=== PATIENT | female | born 1955 | race Caucasian/White ===

== ENCOUNTER 2016-12-11 06:33 | Day surgery (SDC) | payer MEDICAID ==
[~2016-12-11 06:33] MED LIST: Lactated Ringers 1,000 ML IV SCH; Lidocaine 1%/Sod Bicarbonate in NS 8.4% 1 ML Syringe PRN; Sodium Chloride 0.9% 10 ML Syringe FLUSH PRN
[2016-12-11] MEDS ORDERED: Lidocaine 1% 50 ML MDV ONE (07:03)
[2016-12-11] MEDS ORDERED: Bupivacaine 0.25% 30 ML SDV ONE (07:03)
--- NOTE | 2016-12-11 07:09 | PCM.PREANE ---
Preanesthetic Assessment - Anesthesia/Transfusion/Family Hx Anesthesia History: Prior Anesthesia Reaction Type of Anesthesia Reaction: Excessive Nausea/Vomiting Family History of Anesthesia Reaction: No Transfusion History: No Prior Transfusion(s) Additional History: scleroderma - Review of Systems General: No Symptoms Pulmonary: Shortness of Breath, Cough (uses inhalers daily- pt has emphysema ) Cardiovascular: No Symptoms Gastrointestinal: No symptoms (GERD, bleeding gastric ulcer 06/08) Neurological: No Symptoms Other: Reports: Easy Bruising, Depression, Anxiety - Physical Assessment NPO Status Date: 12/10/16 NPO Status Time: 23:50 O2 Sat by Pulse Oximetry: 100 Respiratory Rate: 16 Vital Signs: Last Vital Signs Temp 36.4 C 12/11/16 06:35 Pulse 63 12/11/16 06:35 Resp 16 12/11/16 06:35 BP 118/80 12/11/16 06:35 Pulse Ox 100 12/11/16 06:35 Height: 1.65 m Weight: 51.256 kg ASA Class: 3 Mental Status: Alert & Oriented x3 Airway Class: Mallampati = 2 Dentition: Reports: Dentures (upper and lower ) ROM/Head Extension: Limited/Partial (scleroderma) Lungs: Clear to auscultation, Normal respiratory effort Cardiovascular: Regular Rate, Regular Rhythm - Allergies Allergies/Adverse Reactions: Allergies Allergy/AdvReac Type Severity Reaction Status Date / Time azithromycin Allergy Cannot Verified 12/10/16 15:42 Remember cephalexin [From Keflex] Allergy Cannot Verified 12/10/16 15:42 Remember Influenza Virus Vaccines Allergy Cannot Verified 12/10/16 15:49 Remember codeine AdvReac passes out Verified 12/10/16 15:49 erythromycin base AdvReac passes out Verified 12/10/16 15:49 - Blood Blood Available: No Product(s) Available: None - Anesthesia Plan Pre-Op Medication Ordered: None - Acknowledgements Anesthesia Type Planned: MAC Pt an Appropriate Candidate for the Planned Anesthesia: Yes Alternatives and Risks of Anesthesia Discussed w Pt/Guardian: Yes Pt/Guardian Understands and Agrees with Anesthesia Plan: Yes PreAnesthesia Questionnaire Cardiovascular History: Reports: None Respiratory History: Reports: Bronchitis, recurrent, Other (see below) Other Respiratory History: centrilobular emphysema, chronic bronchitis, aspiration pneumonia, brochoscopy Gastrointestinal History: Reports: Colon polyp, Gastritis, GERD Genitourinary History: Reports: None 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 Other Musculoskeletal History: L lateral epicondylitis, rayauds Neurological History: Reports: None Psychiatric History: Reports: Anxiety, Depression Endocrine/Metabolic History: Reports: None Hematologic History: Reports: None Immunologic History: Reports: None Oncologic (Cancer) History: Reports: Ovarian Dermatologic History: Reports: Other (see below) Other Dermatologic History: scleroderma - Past Surgical History HEENT Surgical History: Reports: Oral surgery GI Surgical History: Reports: Appendectomy, Cholecystectomy, EGD Female Surgical History: Reports: Hysterectomy, Tubal ligation Musculoskeletal Surgical History: Reports: Other (see below) Other Musculoskeletal Surgeries/Procedures:: back surgery, fracture surgery, hand surgery, spine surgery - SUBSTANCE USE Smoking Status *Q: Current Every Day Smoker Recreational Drug Use History: No - HOME MEDS Home Medications: Home Meds Albuterol [Proair HFA] 1 - 2 puff INH Q4H PRN 12/10/16 [History] Dexlansoprazole [Dexilant] 60 mg PO DAILY 12/10/16 [History] Fluticasone/Vilanterol [Breo Ellipta 200-25 MCG Inhalation Kit] 1 puff INH DAILY 12/10/16 [History] Ibuprofen 1 - 3 tab PO Q6H PRN 12/10/16 [History] Nitroglycerin [Nitro-Bid 2%] 0.5 inch TOP Q6H 12/10/16 [History] Ondansetron [Ondansetron] 4 mg PO Q6H PRN 12/10/16 [History] amLODIPine Besylate [Amlodipine Besylate] 10 mg PO DAILY 12/10/16 [History] - CURRENT (IN HOUSE) MEDS Current Meds: Current Medications Lactated Ringer's (Ringers, Lactated) 1,000 mls @ 125 mls/hr IV ASDIRECTED NERY Stop: 12/11/16 23:00 Lidocaine/Sodium Bicarbonate (Buffered Lidocaine 1% In Ns 8.4%) 0.25 ml .XX ONETIME PRN PRN Reason: Prior to IV Start Stop: 12/11/16 18:00 Sodium Chloride (Saline Flush) 10 ml FLUSH ASDIRECTED PRN PRN Reason: Keep Vein Open Stop: 12/11/16 18:00
[2016-12-11] MEDS ORDERED: Midazolam 1 MG/ML 2 ML SDV ONE (07:32)
[2016-12-11] MEDS ORDERED: fentaNYL 100 MCG/2 ML SDV ONE (07:32)
[2016-12-11] MEDS ORDERED: Propofol 200 MG/20 ML SDV ONE (07:32)
[2016-12-11] MEDS ORDERED: Lidocaine 1% 4 ML ONE (07:32)
[2016-12-11] MEDS ORDERED: ceFAZolin 1 GM Vial ONE (07:33)
[2016-12-11] MEDS ORDERED: Ondansetron 4 MG/2 ML SDV ONE (07:58)
--- NOTE | 2016-12-11 08:04 | PCM48HPAN ---
Post Anesthesia Note - EVALUATION WITHIN 48HRS OF ANESTHETIC Vital Signs in Normal Range: Yes Patient Participated in Evaluation: Yes Respiratory Function Stable: Yes Airway Patent: Yes Cardiovascular Function Stable: Yes Hydration Status Stable: Yes Pain Control Satisfactory: Yes Nausea and Vomiting Control Satisfactory: Yes Mental Status Recovered: Yes
[2016-12-11 08:07] VITALS: BP 95/57
--- NOTE | 2016-12-14 18:30 | PCM.OPNOTE ---
- General Post-Op/Procedure Note Date of Surgery/Procedure: 12/11/16 Operative Procedure(s): right carpal tunnel release Pre Op Diagnosis: right median nerve compression neuropathy Post-Op Diagnosis: Same Anesthesia Technique: Local, MAC Primary Surgeon: Weston Silva Anesthesia Provider: Dhaval Schmitt Epic Director: Wendy Ruiz EBL in mLs: 5 Complications: None Condition: Good
--- NOTE | 2016-12-14 19:02 | OR ---
DATE OF OPERATION: 12/11/2016 SURGEON: Weston Silva MD OPERATION PERFORMED: Right carpal tunnel release. PREOPERATIVE DIAGNOSIS: Right median nerve compression neuropathy. POSTOPERATIVE DIAGNOSIS: Right median nerve compression neuropathy. ANESTHESIA: Local MAC. ANESTHESIA PROVIDER: Dhaval Schmitt. FLY WORKER: Wendy Ruiz LPN. ESTIMATED BLOOD LOSS: Less than 5 mL. COMPLICATIONS: None. CONDITION: Stable. DESCRIPTION OF PROCEDURE: The patient was identified in the preop holding area. Proper site was marked and identified by the surgeon. The patient was taken back to the operating theater after adequate anesthesia, the patient's right upper extremity was sterilely prepped and draped in the usual sterile fashion. OR time-out was performed. The patient received 2 g IV Ancef and tolerated the test dose. At this time, 1% lidocaine without epinephrine and 0.25% Marcaine without epinephrine were injected near the palmar cutaneous branch of the median nerve on the right side as well as in the incisional site using Razo cardinal line in the ulnar border of the fourth digit. At this time, an Esmarch was used for exsanguination up to the forearm and was used as a tourniquet. Incision was then made and blunt dissection was taken down to the palmar cutaneous fascia. Palmar cutaneous fascia was then divided using a [place] blade. Transverse carpal ligament was identified. A small rent was made in the transverse carpal ligament. A [place] elevator was then placed into the transverse carpal ligament and [place] blade was used for release distally of the transverse carpal ligament all the way to the palmar fat. At this time, there was found to be adequate release distally. Attention was turned proximally. A tenotomy scissors was used for release of both forearm fascia and transverse carpal ligament proximally making sure to keep the tips ulnar to protect the palmar cutaneous branch of the median nerve. This found to be adequately released both proximally and distally. At this time, adequate saline was irrigated through the wound. A 4-0 nylon simple suture was used for closure of the skin and a sterile soft dressing was applied. The patient tolerated the procedure well and was sent to PACU in stable condition. MMODAL /[id number]
== END 2016-12-11 08:50 | disposition home or self-care (01) ==
LOC: MERGE 06:33 → JD.SDS 06:33
PROVIDERS: ATTEND Orthopaedic Surgery
DX: G56.11 Other lesions of median nerve, right upper limb (principal); K21.9 Gastro-esophageal reflux disease without esophagitis; J44.9 Chronic obstructive pulmonary disease, unspecified; F32.9 Major depressive disorder, single episode, unspecified; F17.200 Nicotine dependence, unspecified, uncomplicated; Z88.1 Allergy status to other antibiotic agents; Z88.8 Allergy status to other drugs, medicaments and biological substances
CPT/HCPCS: 64721; J0690; J2250; J2405; J3010; J7120; 01810; J2704; J3490

== ENCOUNTER 2017-01-15 06:30 | Day surgery (SDC) | payer MEDICAID ==
[2017-01-15] MEDS ORDERED: Lidocaine 1% 50 ML MDV ONE (06:38)
[2017-01-15] MEDS ORDERED: Bupivacaine 0.25% 30 ML SDV ONE (06:38)
[2017-01-15] MEDS ORDERED: fentaNYL 100 MCG/2 ML SDV ONE ×2 (06:46→07:03)
[2017-01-15] MEDS ORDERED: Midazolam 1 MG/ML 2 ML SDV ONE ×2 (06:46→07:04)
[2017-01-15] MEDS ORDERED: ceFAZolin 1 GM Vial ONE (06:46)
[2017-01-15] MEDS ORDERED: Propofol 200 MG/20 ML SDV ONE ×2 (06:50→07:03)
[2017-01-15] MEDS ORDERED: Lidocaine 1% 4 ML ONE (07:04)
--- NOTE | 2017-01-15 07:06 | PCM.PREANE ---
Preanesthetic Assessment - Anesthesia/Transfusion/Family Hx Anesthesia History: Prior Anesthesia Reaction (Nausea intermittently after surgery) Type of Anesthesia Reaction: Other (see below) Family History of Anesthesia Reaction: No Transfusion History: No Prior Transfusion(s) Intubation History: Unknown - Review of Systems General: No Symptoms (Nerves) Pulmonary: Shortness of Breath (COPD, can walk up 2 flights up of stairs but SOB ), Cough (All the time), Other (Emphysema) Cardiovascular: No Symptoms Gastrointestinal: Other (GERD, gastritis) Neurological: Numbness, Tingling (In bilateral hands r/t Raynauds and scleroderma) Other: Reports: Depression, Anxiety - Physical Assessment NPO Status Date: 01/14/17 NPO Status Time: 23:45 Pulse: 68 O2 Sat by Pulse Oximetry: 100 Respiratory Rate: 16 Blood Pressure: 131/71 Temperature: 37.1 C Height: 1.65 m Weight: 51.256 kg ASA Class: 3 Mental Status: Alert & Oriented x3 Airway Class: Mallampati = 3 Dentition: Reports: Dentures (Upper and lower) Thyro-Mental Finger Breadths: 3 Mouth Opening Finger Breadths: 2 ROM/Head Extension: Full Lungs: Decreased breath sounds Cardiovascular: Regular Rate, Regular Rhythm, No Murmurs - Lab Values: Laboratory Last Values MRSA (PCR) Negative 01/13/17 09:23 - Allergies Allergies/Adverse Reactions: Allergies Allergy/AdvReac Type Severity Reaction Status Date / Time Influenza Virus Vaccines Allergy Nausea and Verified 01/15/17 07:11 Vomiting azithromycin AdvReac Dizziness Verified 01/14/17 13:32 cephalexin [From Keflex] AdvReac Nausea and Verified 01/15/17 07:11 Vomiting codeine AdvReac Dizziness Verified 01/14/17 13:32 erythromycin base AdvReac passes out Verified 01/14/17 13:32 - Acknowledgements Anesthesia Type Planned: MAC Pt an Appropriate Candidate for the Planned Anesthesia: Yes Alternatives and Risks of Anesthesia Discussed w Pt/Guardian: Yes Pt/Guardian Understands and Agrees with Anesthesia Plan: Yes PreAnesthesia Questionnaire Cardiovascular History: Reports: None Respiratory History: Reports: Bronchitis, Recurrent, Other (See Below) Other Respiratory History: centrilobular emphysema, chronic bronchitis, aspiration pneumonia, brochoscopy Gastrointestinal History: Reports: Colon Polyp, Gastritis, GERD Genitourinary History: Reports: None SIZE TESTER History: Reports: None Musculoskeletal History: Reports: Back Pain, Chronic, Other (See Below) Other Musculoskeletal History: L lateral epicondylitis, rayauds Neurological History: Reports: None Psychiatric History: Reports: Anxiety, Depression Endocrine/Metabolic History: Reports: None Hematologic History: Reports: None Immunologic History: Reports: None Oncologic (Cancer) History: Reports: Ovarian Dermatologic History: Reports: Scleroderma - Past Surgical History Head Surgeries/Procedures: Reports: None HEENT Surgical History: Reports: Oral Surgery Respiratory Surgical History: Reports: Other (See Below) Other Respiratory Surgeries/Procedures: bronchoscopy GI Surgical History: Reports: Appendectomy, Cholecystectomy, EGD Female Surgical History: Reports: Hysterectomy, Tubal Ligation Musculoskeletal Surgical History: Reports: Other (See Below) Other Musculoskeletal Surgeries/Procedures:: back surgery, fracture surgery, hand surgery, spine surgery - SUBSTANCE USE Smoking Status *Q: Current Every Day Smoker Tobacco Use Within Last Twelve Months: Cigarettes Second Hand Smoke Exposure: Yes Number of Drinks Per Day: 0 Recreational Drug Use History: No - HOME MEDS Home Medications: Home Meds Albuterol [IJD: Ventolin HFA] 2 puff INH Q4HR PRN 06/10/16 [History] Mycophenolate Mofetil 500 mg PO BID 06/10/16 [History] Pantoprazole [ProTONIX] 40 mg PO BIDAC #60 tab.cr 06/10/16 [Rx] Umeclidinium Brm/Vilanterol Tr [Anoro Ellipta 62.5-25 Mcg INH] 1 inh INH DAILY 06/10/16 [History] Albuterol [Proair HFA] 1 - 2 puff INH Q4H PRN 12/10/16 [History] Dexlansoprazole [Dexilant] 60 mg PO DAILY 12/10/16 [History] Fluticasone/Vilanterol [Breo Ellipta 200-25 MCG Inhalation Kit] 1 puff INH DAILY 12/10/16 [History] Ibuprofen 1 - 3 tab PO Q6H PRN 12/10/16 [History] Nitroglycerin [Nitro-Bid 2%] 0.5 inch TOP Q6H 12/10/16 [History] amLODIPine Besylate [Amlodipine Besylate] 10 mg PO DAILY 12/10/16 [History] Tiotropium Br/Olodaterol HCl [Stiolto Respimat Inhal [place]] 1 inh INH DAILY [History] Hydrocodone/Acetaminophen [[place] 5-325] 1 - 2 tab PO Q6H PRN #20 tablet [Rx] Ondansetron [Zofran ODT] 4 mg PO Q6H PRN #20 tab.dis 01/15/17 [Rx] - CURRENT (IN HOUSE) MEDS Current Meds: Current Medications Lactated Ringer's (Ringers, Lactated) 1,000 mls @ 125 mls/hr IV ASDIRECTED NERY Stop: 01/15/17 23:00 Lidocaine/Sodium Bicarbonate (Buffered Lidocaine 1% In Ns 8.4%) 0.25 ml .XX ONETIME PRN PRN Reason: Prior to IV Start Stop: 01/15/17 18:00 Sodium Chloride (Saline Flush) 10 ml FLUSH ASDIRECTED PRN PRN Reason: Keep Vein Open Stop: 01/15/17 18:00 Discontinued Medications Bupivacaine HCl (Marcaine 0.25%) Confirm Administered Dose 30 ml .ROUTE .STK- MED ONE Stop: 01/15/17 06:39 Cefazolin Sodium (Ancef) Confirm Administered Dose 2 gm .ROUTE .STK-MED ONE Stop: 01/15/17 06:47 Fentanyl (Sublimaze) Confirm Administered Dose 100 mcg .ROUTE .STK-MED ONE Stop: 01/15/17 06:47 Fentanyl (Sublimaze) Confirm Administered Dose 100 mcg .ROUTE .STK-MED ONE Stop: 01/15/17 07:04 Lidocaine HCl (Xylocaine-Mpf 1%) Confirm Administered Dose 4 mls @ as directed .ROUTE .STK-MED ONE Stop: 01/15/17 07:05 Lidocaine HCl (Xylocaine 1%) Confirm Administered Dose 50 ml .ROUTE .STK-MED ONE Stop: 01/15/17 06:39 Midazolam HCl (Versed 1 Mg/Ml) Confirm Administered Dose 2 mg .ROUTE .STK-MED ONE Stop: 01/15/17 06:47 Midazolam HCl (Versed 1 Mg/Ml) Confirm Administered Dose 2 mg .ROUTE .STK-MED ONE Stop: 01/15/17 07:05 Propofol (Diprivan 20 Ml) Confirm Administered Dose 200 mg .ROUTE .STK-MED ONE Stop: 01/15/17 06:51 Propofol (Diprivan 20 Ml) Confirm Administered Dose 200 mg .ROUTE .[facility] Stop: 01/15/17 07:04
[2017-01-15 08:32] VITALS: BP 116/72
--- NOTE | 2017-01-21 07:16 | PCM.OPNOTE ---
- General Post-Op/Procedure Note Date of Surgery/Procedure: 01/15/17 Operative Procedure(s): left carpal tunnel release Pre Op Diagnosis: left median nerve compression neuropathy Post-Op Diagnosis: Same Anesthesia Technique: Local, MAC Primary Surgeon: Weston Silva Anesthesia Provider: Gabriella Pollard Geophysical Engineer: Ashley Reveles EBL in mLs: 5 Complications: None Condition: Good
--- NOTE | 2017-01-21 09:35 | OR ---
DATE OF OPERATION: 01/15/2017 SURGEON: Weston Silva MD OPERATION PERFORMED: Left carpal tunnel release. PREOPERATIVE DIAGNOSIS: Left median nerve compression neuropathy. POSTOPERATIVE DIAGNOSIS: Left median nerve compression neuropathy. ANESTHESIA: Local MAC. ANESTHESIA PROVIDER: Moustapha Narayan. MANAGER ENVIRONMENTAL: Ashley Reveles PA-C. ESTIMATED BLOOD LOSS: Less than 5 mL. COMPLICATIONS: None. CONDITION: Stable. DESCRIPTION OF PROCEDURE: The patient was identified in the preoperative holding area, proper site was marked and identified by the surgeon. The patient was taken back to the operating theater, where after adequate anesthesia, the patient's left upper extremity had a nonsterile tourniquet applied and was then sterilely prepped and draped in the usual sterile fashion. OR time-out was performed. The patient did receive 2 g IV Ancef. At this time, Esmarch was used as a tourniquet on the forearm. Marcaine 0.25% without epinephrine and 1% lidocaine without epinephrine were then used for anesthetization of the palmar cutaneous branch of the median nerve as well as the incisional site using R[place] cardinal line in the ulnar border of the fourth digit. At this time, incision was made. Blunt dissection was taken down to the palmar cutaneous fascia. Palmar cutaneous fascia was then incised. A small rent was made in the transverse carpal ligament. A [place] elevator was then placed distally with the use of a [place] blade and tenotomy. The transverse carpal ligament was released all the way distally and was found to have adequate release. Attention was then turned proximally. A tenotomy scissors was used with keeping the tips of ulnar to protect the palmar cutaneous branch of the median nerve, to release the transverse carpal ligament in the forearm fascia. The patient, at this time, had adequate release. Adequate saline was irrigated through the wound. A 4-0 nylon simple suture was used for closure of the skin. The patient tolerated the procedure well and was sent to PACU in stable condition. MMODAL /[id number]
== END 2017-01-15 08:25 | disposition home or self-care (01) ==
LOC: JD.SDS 06:30
PROVIDERS: ATTEND Orthopaedic Surgery
DX: G56.02 Carpal tunnel syndrome, left upper limb (principal); J43.9 Emphysema, unspecified; K21.9 Gastro-esophageal reflux disease without esophagitis; F41.9 Anxiety disorder, unspecified; F17.210 Nicotine dependence, cigarettes, uncomplicated; F32.9 Major depressive disorder, single episode, unspecified; I73.00 Raynaud's syndrome without gangrene; M34.9 Systemic sclerosis, unspecified; Z88.5 Allergy status to narcotic agent; Z88.1 Allergy status to other antibiotic agents; Z90.49 Acquired absence of other specified parts of digestive tract; Z98.51 Tubal ligation status; Z98.890 Other specified postprocedural states; Z90.710 Acquired absence of both cervix and uterus; Z88.8 Allergy status to other drugs, medicaments and biological substances
CPT/HCPCS: 64721; 87641; J0690; J2250; J3010; J7120; 01810; J2704; J3490

== ENCOUNTER 2017-10-02 06:51 | Day surgery (SDC) | payer MEDICAID ==
[~2017-10-02 06:51] MED LIST changes: +Lidocaine 1%/Sod Bicarbonate in NS 8.4% 1 ML Syringe IV PRN; -Lidocaine 1%/Sod Bicarbonate in NS 8.4% 1 ML Syringe PRN
[2017-10-02] MEDS ORDERED: Propofol 200 MG/20 ML SDV ONE (07:28)
[2017-10-02] MEDS ORDERED: Lidocaine 1% 4 ML ONE (07:28)
--- NOTE | 2017-10-02 07:42 | PCM.HP ---
H&P History of Present Illness - General Date of Service: 10/02/17 Admit Problem/Dx: 62 year old female here today for colon cancer screening. Colonoscopy was attempted last year and adenomatous polyp was removed and due to poor prep it was recommended to return in 1 year. Her prep was intensified this year and she feels she has had a good result. She notes no family history of colon cancer. She has pulmonology managed ILD and emphysema. She denies any blood in stool. Source of Information: Patient History Limitations: Reports: No Limitations - Related Data Allergies/Adverse Reactions: Allergies Allergy/AdvReac Type Severity Reaction Status Date / Time duloxetine [From Cymbalta] Allergy Confusion Verified 10/02/17 07:43 Influenza Virus Vaccines Allergy Nausea and Verified 10/02/17 07:43 Vomiting azithromycin AdvReac Dizziness Verified 10/02/17 07:43 cephalexin [From Keflex] AdvReac Nausea and Verified 10/02/17 07:43 Vomiting codeine AdvReac Dizziness Verified 10/02/17 07:43 erythromycin base AdvReac passes out Verified 10/02/17 07:43 Home Medications: Home Meds Albuterol [Proair HFA] 1 - 2 puff INH Q4H PRN 12/10/16 [History] Dexlansoprazole [Dexilant] 60 mg PO DAILY 12/10/16 [History] amLODIPine Besylate [Amlodipine Besylate] 10 mg PO DAILY 12/10/16 [History] Tiotropium Br/Olodaterol HCl [Stiolto Respimat Inhal [place]] 2 inh INH DAILY [History] Albuterol/Ipratropium [Combivent Respimat] 1 puff INH Q4H PRN 10/01/17 [History] Beclomethasone Dipropionate [Qnasl] 2 puff INH BID 10/01/17 [History] Hydroxychloroquine Sulfate [Plaquenil] 400 mg PO DAILY 10/01/17 [History] Past Medical History HEENT History: Reports: Other (See Below) Other HEENT History: has dentures Cardiovascular History: Reports: None Respiratory History: Reports: Bronchitis, Recurrent, Other (See Below) Other Respiratory History: centrilobular emphysema, chronic bronchitis, aspiration pneumonia, brochoscopy, interstitial lung disease Gastrointestinal History: Reports: Colon Polyp, Gastritis, GERD, Other (See Below) Other Gastrointestinal History: gastritis, rectal polyp Genitourinary History: Reports: None 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 Musculoskeletal History: Reports: Back Pain, Chronic, Other (See Below) Other Musculoskeletal History: L lateral epicondylitis, rayauds Neurological History: Reports: None Psychiatric History: Reports: Anxiety, Depression Endocrine/Metabolic History: Reports: None Hematologic History: Reports: None Immunologic History: Reports: None Oncologic (Cancer) History: Reports: Ovarian Dermatologic History: Reports: Scleroderma - Past Surgical History Head Surgeries/Procedures: Reports: None HEENT Surgical History: Reports: Oral Surgery Cardiovascular Surgical History: Reports: None Respiratory Surgical History: Reports: Other (See Below) Other Respiratory Surgeries/Procedures: bronchoscopy GI Surgical History: Reports: Appendectomy, Cholecystectomy, EGD Female Surgical History: Reports: Hysterectomy, Oophorectomy, Tubal Ligation Male Surgical History: Reports: None Endocrine Surgical History: Reports: None Neurological Surgical History: Reports: Other (See Below) Other Neurological Surgeries/Procedures: spine surgery Musculoskeletal Surgical History: Reports: Other (See Below) Other Musculoskeletal Surgeries/Procedures:: back surgery, fracture surgery, hand surgery, spine surgery Oncologic Surgical History: Reports: None Dermatological Surgical History: Reports: None Social & Family History - Tobacco Use Smoking Status *Q: Current Every Day Smoker Years of Tobacco use: 45 Packs/Tins Daily: 0.5 Second Hand Smoke Exposure: Yes - Caffeine Use Caffeine Use: Reports: None - Alcohol Use Number of Drinks Per Day: 0 - Recreational Drug Use Recreational Drug Use: No Drug Use in Last 12 Months: No H&P Review of Systems - Review of Systems: Review Of Systems: See Below General: Reports: No Symptoms Pulmonary: Reports: Shortness of Breath, Cough Cardiovascular: Reports: No Symptoms Gastrointestinal: Reports: No Symptoms Skin: Reports: No Symptoms Exam - Exam Exam: See Below - Exam General: Alert, Oriented Lungs: Clear to Auscultation, Normal Respiratory Effort, Decreased Breath Sounds Cardiovascular: Regular Rate, Regular Rhythm GI/Abdominal Exam: Normal Bowel Sounds, Soft, Non-Tender *Q Meaningful Use (ADM) - VTE *Q VTE Criteria *Q: - Stroke *Q Stroke Criteria *Q: - AMI *Q AMI Criteria *Q: - Problem List (1) History of colonoscopy with polypectomy SNOMED Code(s): 100387970 ICD Code: Z98.890 - OTHER SPECIFIED POSTPROCEDURAL STATES; Z86.010 - PERSONAL HISTORY OF COLONIC POLYPS Status: Acute Current Visit: Yes (2) History of adenomatous polyp of colon SNOMED Code(s): 347018617 ICD Code: Z86.010 - PERSONAL HISTORY OF COLONIC POLYPS Status: Acute Current Visit: Yes Problem List Initiated/Reviewed/Updated: Yes Orders Last 24hrs: Active Orders 24 hr Category Date Time Status Peripheral IV Care [RC] . DIRECTED Care 10/02/17 00:01 Active Verify Patient Consent Obtain [RC] ASDIRECTED Care 10/02/17 00:01 Active Lactated Ringers [Ringers, Lactated] 1,000 ml Med 10/02/17 00:01 Active IV ASDIRECTED Lidocaine 1%/Sod Bicarbonate [Buffered Lidocaine 1% in Med 10/02/17 00:01 Active NS 8.4%] 0.25 ml IV ONETIME PRN Sodium Chloride 0.9% [Saline Flush] Med 10/02/17 00:01 Active 10 ml FLUSH ASDIRECTED PRN Medication Administration Instruction [OM.PC] Routine Oth 10/02/17 00:01 Ordered Peripheral IV Insertion Adult [OM.PC] Routine Oth 10/02/17 00:01 Ordered Medication Orders Lactated Ringer's (Ringers, Lactated) 1,000 mls @ 125 mls/hr IV ASDIRECTED NERY Lidocaine/Sodium Bicarbonate (Buffered Lidocaine 1% In Ns 8.4%) 0.25 ml IV ONETIME PRN PRN Reason: Prior to IV Start Sodium Chloride (Saline Flush) 10 ml FLUSH ASDIRECTED PRN PRN Reason: Keep Vein Open Assessment/Plan Comment:: Proceed with colonoscopy with MAC. benefits/risks discussed.
[2017-10-02] MEDS ORDERED: Ondansetron 4 MG/2 ML SDV ONE (08:01)
--- NOTE | 2017-10-02 08:27 | PCM.OPNOTE ---
- General Post-Op/Procedure Note Date of Surgery/Procedure: 10/02/17 Operative Procedure(s): Colonoscopy with cold forceps biopsy Findings: 4 mm sigmoid polyp Pre Op Diagnosis: Personal history colon polyps, history of incomplete colonoscopy prep Post-Op Diagnosis: Colon polyp Primary Surgeon: Glynn Herrmann EBL in mLs: 5 Complications: None Condition: Good Free Text/Narrative:: After patient gave verbal and written consent she was placed on bp and pulse ox monitoring. She was given iv sedation which she tolerated well. The olympus colonoscope was inserted per rectum and advanced to the cecum without difficulty. The ileocecal valve and appendiceal orfice were imaged documenting cecal intubation. The scope was slowly withdrawn. The prep was excellent. The views were excellent. A 4 mm sigmoid polyp was noted and removed by cold forceps biopsy. It was completely removed. There was hemostasis. The scope was then retroflexed in the rectum and then removed.
[2017-10-02 08:56] VITALS: BP 139/78
--- NOTE | 2017-10-02 12:54 | PCM.PREANE ---
Preanesthetic Assessment - Procedure Proposed Procedure: colonoscopy - Anesthesia/Transfusion/Family Hx Anesthesia History: Prior Anesthesia Reaction (Nausea intermittently after surgery) Family History of Anesthesia Reaction: No Transfusion History: No Prior Transfusion(s) Intubation History: Unknown - Review of Systems General: No Symptoms Pulmonary: No Symptoms Cardiovascular: No Symptoms Gastrointestinal: No Symptoms Neurological: No Symptoms Other: Reports: None - Physical Assessment NPO Status Date: 10/01/17 NPO Status Time: 20:00 O2 Sat by Pulse Oximetry: 99 Respiratory Rate: 16 Vital Signs: Last Vital Signs Temp 36.3 C 10/02/17 08:29 Pulse 47 L 10/02/17 08:55 Resp 16 10/02/17 08:55 BP 139/78 10/02/17 08:55 Pulse Ox 99 10/02/17 08:55 Height: 1.65 m Weight: 52.163 kg ASA Class: 2 Mental Status: Alert & Oriented x3 Airway Class: Mallampati = 1 Thyro-Mental Finger Breadths: 3 Mouth Opening Finger Breadths: 5 ROM/Head Extension: Full Lungs: Normal Respiratory Effort, Decreased Breath Sounds Cardiovascular: Regular Rate, Regular Rhythm - Allergies Allergies/Adverse Reactions: Allergies Allergy/AdvReac Type Severity Reaction Status Date / Time duloxetine [From Cymbalta] Allergy Confusion Verified 10/02/17 07:43 Influenza Virus Vaccines Allergy Nausea and Verified 10/02/17 07:43 Vomiting azithromycin AdvReac Dizziness Verified 10/02/17 07:43 cephalexin [From Keflex] AdvReac Nausea and Verified 10/02/17 07:43 Vomiting codeine AdvReac Dizziness Verified 10/02/17 07:43 erythromycin base AdvReac passes out Verified 10/02/17 07:43 - Blood Blood Available: No - Acknowledgements Anesthesia Type Planned: MAC Pt an Appropriate Candidate for the Planned Anesthesia: Yes Alternatives and Risks of Anesthesia Discussed w Pt/Guardian: Yes Pt/Guardian Understands and Agrees with Anesthesia Plan: Yes Additional Comments: preop done before case charted post op due to computer access not working PreAnesthesia Questionnaire HEENT History: Reports: Other (See Below) Other HEENT History: has dentures Cardiovascular History: Reports: None Respiratory History: Reports: Bronchitis, Recurrent, Other (See Below) Other Respiratory History: centrilobular emphysema, chronic bronchitis, aspiration pneumonia, brochoscopy, interstitial lung disease Gastrointestinal History: Reports: Colon Polyp, Gastritis, GERD, Other (See Below) Other Gastrointestinal History: gastritis, rectal polyp Genitourinary History: Reports: None 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: Reports: 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 Musculoskeletal History: Reports: Back Pain, Chronic, Other (See Below) Other Musculoskeletal History: L lateral epicondylitis, rayauds Neurological History: Reports: None Psychiatric History: Reports: Anxiety, Depression Endocrine/Metabolic History: Reports: None Hematologic History: Reports: None Immunologic History: Reports: None Oncologic (Cancer) History: Reports: Ovarian Dermatologic History: Reports: Scleroderma - Past Surgical History Head Surgeries/Procedures: Reports: None HEENT Surgical History: Reports: Oral Surgery Cardiovascular Surgical History: Reports: None Respiratory Surgical History: Reports: Other (See Below) Other Respiratory Surgeries/Procedures: bronchoscopy GI Surgical History: Reports: Appendectomy, Cholecystectomy, EGD Female Surgical History: Reports: Hysterectomy, Oophorectomy, Tubal Ligation Male Surgical History: Reports: None Endocrine Surgical History: Reports: None Neurological Surgical History: Reports: Other (See Below) Other Neurological Surgeries/Procedures: spine surgery Musculoskeletal Surgical History: Reports: Other (See Below) Other Musculoskeletal Surgeries/Procedures:: back surgery, fracture surgery, hand surgery, spine surgery Oncologic Surgical History: Reports: None Dermatological Surgical History: Reports: None - SUBSTANCE USE Smoking Status *Q: Current Every Day Smoker Tobacco Use Within Last Twelve Months: Cigarettes Second Hand Smoke Exposure: Yes Number of Drinks Per Day: 0 Recreational Drug Use History: No - HOME MEDS Home Medications: Home Meds Albuterol [Proair HFA] 1 - 2 puff INH Q4H PRN 12/10/16 [History] Dexlansoprazole [Dexilant] 60 mg PO DAILY 12/10/16 [History] amLODIPine Besylate [Amlodipine Besylate] 10 mg PO DAILY 12/10/16 [History] Tiotropium Br/Olodaterol HCl [Stiolto Respimat Inhal [place]] 2 inh INH DAILY [History] Albuterol/Ipratropium [Combivent Respimat] 1 puff INH Q4H PRN 10/01/17 [History] Beclomethasone Dipropionate [Qnasl] 2 puff INH BID 10/01/17 [History] Hydroxychloroquine Sulfate [Plaquenil] 400 mg PO DAILY 10/01/17 [History] - CURRENT (IN HOUSE) MEDS Current Meds: Current Medications Discontinued Medications Lactated Ringer's (Ringers, Lactated) 1,000 mls @ 125 mls/hr IV ASDIRECTED NERY Last Admin: 10/02/17 07:15 Dose: 125 mls/hr Lidocaine HCl (Xylocaine-Mpf 1%) Confirm Administered Dose 4 mls @ as directed .ROUTE .STK-MED ONE Stop: 10/02/17 07:29 Lidocaine/Sodium Bicarbonate (Buffered Lidocaine 1% In Ns 8.4%) 0.25 ml IV ONETIME PRN PRN Reason: Prior to IV Start Ondansetron HCl (Zofran) Confirm Administered Dose 4 mg .ROUTE .STK-MED ONE Stop: 10/02/17 08:02 Propofol (Diprivan 20 Ml) Confirm Administered Dose 200 mg .ROUTE .STK-MED ONE Stop: 10/02/17 07:29 Sodium Chloride (Saline Flush) 10 ml FLUSH ASDIRECTED PRN PRN Reason: Keep Vein Open
== END 2017-10-02 09:21 | disposition home or self-care (01) ==
LOC: JD.SDS 06:51
PROVIDERS: ATTEND Family Medicine
DX: Z09 Encounter for follow-up examination after completed treatment for conditions other than malignant neoplasm (principal); K63.5 Polyp of colon; K21.9 Gastro-esophageal reflux disease without esophagitis; F41.9 Anxiety disorder, unspecified; F32.9 Major depressive disorder, single episode, unspecified; F17.210 Nicotine dependence, cigarettes, uncomplicated; Z98.890 Other specified postprocedural states; M34.9 Systemic sclerosis, unspecified; I73.00 Raynaud's syndrome without gangrene; Z86.010 Personal history of colon polyps; Z88.8 Allergy status to other drugs, medicaments and biological substances; Z88.7 Allergy status to serum and vaccine; Z88.5 Allergy status to narcotic agent; Z79.899 Other long term (current) drug therapy; Z90.49 Acquired absence of other specified parts of digestive tract; Z90.710 Acquired absence of both cervix and uterus; Z90.722 Acquired absence of ovaries, bilateral; Z98.51 Tubal ligation status; Z85.43 Personal history of malignant neoplasm of ovary
CPT/HCPCS: 45380; J2405; J7120; 00812; J2001; J2704

== ENCOUNTER 2019-08-19 10:04 | Emergency (ER) | payer MEDICARE, MEDICAID ==
[2019-08-19 10:12] VITALS: BP 127/78; PULSE 92
[2019-08-19] MEDS ORDERED: Acetaminophen 325 MG Tab PO ONE ×2 (10:24→10:29)
[2019-08-19] MEDS ORDERED: Ondansetron 4 MG/2 ML SDV IVPUSH ONE (10:24)
[2019-08-19] MEDS ORDERED: Ketorolac 30 MG/ML SDV IVPUSH ONE (10:24)
[2019-08-19] MEDS ORDERED: Sodium Chloride 0.9% 1,000 ML IV SCH (10:30)
--- NOTE | 2019-08-19 10:31 | EDM.PDOC ---
ED HPI GENERAL MEDICAL PROBLEM - General Chief Complaint: General Stated Complaint: [facility] Time Seen by Provider: 08/19/19 10:06 Source of Information: Reports: Patient History Limitations: Reports: No Limitations - History of Present Illness INITIAL COMMENTS - FREE TEXT/NARRATIVE: Patient is a 64-year-old female who presents via [facility] with complaints of excruciating head pain, cough, congestion, and ear pain. Patient denies any history of migraines or generalized headaches. States she feels like "her head is going to explode "and rates the pain 10 out of 10. She does have some nausea with this as well. She states the headache began last night, but the cough and congestion started 2 days ago. Her cough is nonproductive. She does also complain of chills. She did not get a flu vaccine this year. Denies vomiting, diarrhea, fevers, or shortness of breath. Frontal Headache Pain Score (Numeric/FACES): 10 - Related Data Allergies Allergy/AdvReac Type Severity Reaction Status Date / Time duloxetine [From Cymbalta] Allergy Confusion Verified 08/19/19 10:15 Influenza Virus Vaccines Allergy Nausea and Verified 08/19/19 10:15 Vomiting azithromycin AdvReac Dizziness Verified 08/19/19 10:15 cephalexin [From Keflex] AdvReac Nausea and Verified 08/19/19 10:15 Vomiting codeine AdvReac Dizziness Verified 08/19/19 10:15 erythromycin base AdvReac passes out Verified 08/19/19 10:15 Home Meds: Home Meds Albuterol [Proair HFA] 1 - 2 puff INH Q4H PRN 12/10/16 [History] Dexlansoprazole [Dexilant] 60 mg PO DAILY 12/10/16 [History] amLODIPine Besylate [Amlodipine Besylate] 10 mg PO DAILY 12/10/16 [History] Tiotropium Br/Olodaterol HCl [Stiolto Respimat Inhal [place]] 2 inh INH DAILY [History] Albuterol/Ipratropium [Combivent Respimat] 1 puff INH Q4H PRN 10/01/17 [History] Beclomethasone Dipropionate [Qnasl] 2 puff INH BID 10/01/17 [History] Hydroxychloroquine Sulfate [Plaquenil] 400 mg PO DAILY 10/01/17 [History] Past Medical History HEENT History: Reports: Other (See Below) Other HEENT History: has dentures Cardiovascular History: Reports: None Respiratory History: Reports: Bronchitis, Recurrent, Other (See Below) Other Respiratory History: centrilobular emphysema, chronic bronchitis, aspiration pneumonia, brochoscopy, interstitial lung disease Gastrointestinal History: Reports: Colon Polyp, Gastritis, GERD, Other (See Below) Other Gastrointestinal History: gastritis, rectal polyp Genitourinary History: Reports: None EAP COUNSELOR History: Reports: None Musculoskeletal History: Reports: Back Pain, Chronic, Other (See Below) Other Musculoskeletal History: L lateral epicondylitis, rayauds Neurological History: Reports: None Psychiatric History: Reports: Anxiety, Depression Endocrine/Metabolic History: Reports: None Hematologic History: Reports: None Immunologic History: Reports: None Oncologic (Cancer) History: Reports: Ovarian Dermatologic History: Reports: Scleroderma - Past Surgical History Head Surgeries/Procedures: Reports: None HEENT Surgical History: Reports: Oral Surgery Respiratory Surgical History: Reports: Other (See Below) Other Respiratory Surgeries/Procedures: bronchoscopy GI Surgical History: Reports: Appendectomy, Cholecystectomy, EGD Female Surgical History: Reports: Hysterectomy, Oophorectomy, Tubal Ligation Neurological Surgical History: Reports: Other (See Below) Other Neurological Surgeries/Procedures: spine surgery Musculoskeletal Surgical History: Reports: Other (See Below) Other Musculoskeletal Surgeries/Procedures:: back surgery, fracture surgery, hand surgery, spine surgery Oncologic Surgical History: Reports: None Dermatological Surgical History: Reports: None Social & Family History - Tobacco Use Smoking Status *Q: Current Every Day Smoker Years of Tobacco use: 40 Packs/Tins Daily: 0.5 - Caffeine Use Caffeine Use: Reports: Coffee, Soda - Recreational Drug Use Recreational Drug Use: No ED ROS GENERAL - Review of Systems Review Of Systems: See Below Constitutional: Reports: Chills, Diaphoresis. Denies: Fever HEENT: Reports: Ear Pain, Rhinitis, Sinus Problem Respiratory: Reports: Cough. Denies: Shortness of Breath, Wheezing Cardiovascular: Reports: No Symptoms. Denies: Chest Pain, Palpitations Endocrine: Reports: No Symptoms GI/Abdominal: Reports: Nausea. Denies: Abdominal Pain, Diarrhea, Vomiting : Reports: No Symptoms Musculoskeletal: Reports: No Symptoms Skin: Reports: No Symptoms Neurological: Reports: Headache ("worst headache she has ever had") Psychiatric: Reports: No Symptoms Hematologic/Lymphatic: Reports: No Symptoms Immunologic: Reports: No Symptoms ED EXAM, GENERAL - Physical Exam Exam: See Below Exam Limited By: No Limitations General Appearance: Alert, WD/WN, Moderate Distress Eye Exam: Bilateral Eye: PERRL Ears: Normal External Exam, Normal Canal, Hearing Grossly Normal, Normal TMs Nose: Clear Rhinorrhea, Other (congestion) Throat/Mouth: Normal Inspection, Normal Oropharynx, Normal Voice, No Airway Compromise Head: Atraumatic, Normocephalic, Facial Tenderness, Sinus Tenderness. No: Facial Swelling Neck: Normal Inspection, Supple, Non-Tender, Full Range of Motion Respiratory/Chest: No Respiratory Distress, Lungs Clear, Normal Breath Sounds, No Accessory Muscle Use, Chest Non-Tender Cardiovascular: Normal Peripheral Pulses, Regular Rate, Rhythm, No Edema, No Murmur GI/Abdominal: Normal Bowel Sounds, Soft, Non-Tender, No Organomegaly, No Distention Neurological: Alert, Oriented, Normal Cognition, No Motor/Sensory Deficits Psychiatric: Normal Affect, Normal Mood Skin Exam: Warm, Dry, Intact, Normal Color, No Rash Lymphatic: No Adenopathy Course - Vital Signs Last Recorded V/S: Last Vital Signs Temp 97.0 F 08/19/19 10:06 Pulse 92 08/19/19 10:06 Resp 16 08/19/19 10:06 BP 127/78 08/19/19 10:06 Pulse Ox 96 08/19/19 10:06 - Orders/Labs/Meds Orders: Active Orders 24 hr Category Date Time Status Chest 2V [CR] Stat Exams 08/19/19 10:49 Taken Sodium Chloride 0.9% [Normal Saline] 1,000 ml Med 08/19/19 10:30 Active IV ASDIRECTED Medication Orders Sodium Chloride (Normal Saline) 1,000 mls @ 999 mls/hr IV ASDIRECTED NERY Last Infusion: 08/19/19 11:14 Dose: 150 mls/hr Admin: 08/19/19 10:37 Dose: 999 mls/hr Labs: Laboratory Tests 08/19/19 08/19/19 Range/Units 10:33 10:33 WBC 4.91 (3.98-10.04) K/mm3 RBC 4.62 (3.98-5.22) M/mm3 Hgb 13.6 (11.2-15.7) gm/dl Hct 41.2 (34.1-44.9) % MCV 89.2 D (79.4-94.8) fl MCH 29.4 (25.6-32.2) pg MCHC 33.0 (32.2-35.5) g/dl RDW Std Deviation 46.1 (36.4-46.3) fL Plt Count 156 L D (182-369) K/mm3 MPV 9.5 (9.4-12.3) fl Neut % (Auto) 78.9 H (34.0-71.1) % Lymph % (Auto) 7.1 L (19.3-51.7) % [place] % (Auto) 13.4 H (4.7-12.5) % Eos % (Auto) 0 L (0.7-5.8) Baso % (Auto) 0.2 (0.1-1.2) % Neut # (Auto) 3.87 (1.56-6.13) K/mm3 Lymph # (Auto) 0.35 L (1.18-3.74) K/mm3 [place] # (Auto) 0.66 H (0.24-0.36) K/mm3 Eos # (Auto) 0.00 L (0.04-0.36) K/mm3 Baso # (Auto) 0.01 (0.01-0.08) K/mm3 Sodium 139 (136-145) mEq/L Potassium 3.3 L (3.5-5.1) mEq/L Chloride 105 (98-107) mEq/L Carbon Dioxide 23 (21-32) mEq/L Anion Gap 14.3 (5-15) BUN 13 (7-18) mg/dL Creatinine 0.7 (0.55-1.02) mg/dL Est Cr Clr Drug Dosing 64.79 mL/min Estimated GFR (MDRD) > 60 (>60) mL/min BUN/Creatinine Ratio 18.6 H (14-18) Glucose 95 (80-115) mg/dL Calcium 7.7 L D (8.5-10.1) mg/dL Total Bilirubin 0.7 (0.2-1.0) mg/dL AST 16 (15-37) U/L ALT 15 (14-59) U/L Alkaline Phosphatase 90 (46-116) U/L Total Protein 6.3 L (6.4-8.2) g/dl Albumin 3.0 L (3.4-5.0) g/dl Globulin 3.3 gm/dL Albumin/Globulin Ratio 0.9 L (1-2) Meds: Medications Generic Name Dose Route Start Last Admin Trade Name Freq PRN Reason Stop Dose Admin Sodium Chloride 1,000 mls @ 999 mls/hr 08/19/19 10:30 08/19/19 11:14 Normal Saline IV 150 mls/hr ASDIRECTED NERY Infusion Discontinued Medications Generic Name Dose Route Start Last Admin Trade Name Freq PRN Reason Stop Dose Admin Acetaminophen 650 mg 08/19/19 10:24 08/19/19 10:32 Tylenol PO 08/19/19 10:25 Not Given NOW ONE Acetaminophen 975 mg 08/19/19 10:29 08/19/19 10:38 Tylenol PO 08/19/19 10:30 975 mg NOW ONE Administration Hydromorphone HCl 0.5 mg 08/19/19 11:26 08/19/19 11:35 Dilaudid IVPUSH 08/19/19 11:27 0.5 mg ONETIME ONE Administration Ketorolac Tromethamine 30 mg 08/19/19 10:24 08/19/19 10:38 Toradol IVPUSH 08/19/19 10:25 30 mg ONETIME ONE Administration Ondansetron HCl 4 mg 08/19/19 10:24 08/19/19 10:38 Zofran IVPUSH 08/19/19 10:25 4 mg ONETIME ONE Administration - Re-Assessments/Exams Free Text/Narrative Re-Assessment/Exam: I feel it is likely the patient's symptoms are related to a viral respiratory infection with sinusitis, however with the extent of her head pain and her lack of history of headaches I will complete a head CT. I have ordered a 500 ml bolus of saline followed by 150 ml/hr maintenance fluids, acetaminophen, Toradol , and Zofran. I will check a CBC, CMP as well as an influenza screen. 08/19/19 11:28 Patient's laboratory results are grossly unremarkable. Influenza swab is negative. Still awaiting formal read on head CT. Patient continues to rate her head pain at 8 out of 10. I've ordered Dilaudid 0.5 mg IV 08/19/19 12:41 Patient did have relief from her headache with the Dilaudid administration. Head CT was negative for any acute findings. Discussed with patient that she is likely suffering from a viral upper respiratory infection. I will discharge her home with symptomatic treatment. Discharge instructions as noted. Departure - Departure Time of Disposition: 12:41 Disposition: Home, Self-Care 01 Condition: Fair Clinical Impression: Viral upper respiratory tract infection with cough - Discharge Information *PRESCRIPTION DRUG MONITORING PROGRAM REVIEWED*: No *COPY OF PRESCRIPTION DRUG MONITORING REPORT IN PATIENT PAGE: No Instructions: Viral Respiratory Infection Referrals: PCP,Unknown [Ordering Only Provider] - Forms: ED Department Discharge Additional Instructions: You were seen in the emergency department for headache, sinus pressure, cough, and congestion that started 2 days ago. Your lab results were normal as was your head CT and chest x-ray. It is like that sure suffering from a viral upper respiratory infection. Treatment for this is symptomatic. He may use Tylenol or ibuprofen as needed for pain and headaches. [id number] Flonase would be beneficial for your sinus pressure and congestion. We recommend that she rest and have adequate fluid intake. Symptoms generally resolve within 7-10 days. If you experience any new or worsening symptoms, please not hesitate to return to the emergency department. Sepsis Event Note - Evaluation Sepsis Screening Result: No Definite Risk - Focused Exam Vital Signs: Vital Signs Temp Pulse Resp BP Pulse Ox 08/19/19 10:06 97.0 F 92 16 127/78 96 Date Exam was Performed: 08/19/19 Time Exam was Performed: 12:50 - My Orders Last 24 Hours: My Active Orders 08/19/19 10:30 Sodium Chloride 0.9% [Normal Saline] 1,000 ml IV ASDIRECTED 08/19/19 10:49 Chest 2V [CR] Stat - Assessment/Plan Last 24 Hours: My Active Orders 08/19/19 10:30 Sodium Chloride 0.9% [Normal Saline] 1,000 ml IV ASDIRECTED 08/19/19 10:49 Chest 2V [CR] Stat
[2019-08-19] MEDS ORDERED: HYDROmorphone 0.5 MG/0.5 ML Syringe IVPUSH ONE (11:26)
--- NOTE | 2019-08-19 12:32 | CT ---
Head CT Technique: Multiple axial sections through the brain were obtained. Intravenous contrast was not utilized. Comparison: No prior intracranial imaging is available. Findings: Ventricles along with basal cisterns and sulci over the convexities appear within normal limits for the patient's age. No abnormal parenchymal densities are seen. No evidence of intracranial hemorrhage. No midline shift or mass effect is seen. Bone window settings were reviewed which show the visualized paranasal sinuses to appear clear. No acute calvarial abnormality is seen. Mastoid sinuses are clear. Impression: 1. Nothing acute is appreciated on noncontrast head CT exam. Diagnostic code #1 This report was dictated in [place] Standard Time
--- NOTE | 2019-08-19 14:01 | CR ---
Chest: Two views of the chest are obtained. Comparison: Prior chest x-ray of 05/08/16. Interstitial change is seen within both lungs which appear chronic. Lungs are hyperinflated compatible with emphysematous change. No definite acute parenchymal process is seen. Heart size and mediastinum are normal. Bony structures appear within normal limits for patient's age. Impression: 1. Mild chronic interstitial change with probable emphysematous change. 2. Nothing acute is otherwise seen on two-view chest x-ray. Diagnostic code #2 This report was dictated in [place] Standard Time
== END 2019-08-19 13:22 | disposition home or self-care (01) ==
LOC: JD.ED 10:04
DX: J06.9 Acute upper respiratory infection, unspecified (principal); F17.210 Nicotine dependence, cigarettes, uncomplicated; F41.9 Anxiety disorder, unspecified; F32.9 Major depressive disorder, single episode, unspecified; Z79.899 Other long term (current) drug therapy; Z88.1 Allergy status to other antibiotic agents; Z88.7 Allergy status to serum and vaccine; Z88.8 Allergy status to other drugs, medicaments and biological substances
CPT/HCPCS: 36415; 70450; 71046; 80053; 85025; 87804; 96361; 96374; 96375; 99285; A9270; J1170; J1885; J2405; J7030

== ENCOUNTER 2020-12-04 12:34 | Emergency (ER) | payer MEDICARE, MEDICAID ==
[2020-12-04] MEDS ORDERED: Sodium Chloride 0.9% 10 ML Syringe FLUSH PRN (12:59)
[2020-12-04] MEDS ORDERED: HYDROmorphone 0.5 MG/0.5 ML Syringe IVPUSH ONE (13:17)
[2020-12-04] MEDS ORDERED: Acetaminophen 325 MG Tab PO ONE (13:17)
[2020-12-04] MEDS ORDERED: Ondansetron 4 MG/2 ML SDV IVPUSH ONE (13:17)
[2020-12-04] MEDS ORDERED: Sodium Chloride 0.9% 1,000 ML IV SCH (13:30)
--- NOTE | 2020-12-04 13:51 | CR ---
Chest: Portable view of the chest was obtained. Comparison: Prior chest x-ray of 08/19/19. Heart size and mediastinum are normal. Lungs are clear but hyperinflated. Bony structure shows nothing acute. Impression: 1. Emphysematous change. 2. Nothing acute is otherwise seen on portable chest x-ray. Diagnostic code #2
[2020-12-04 14:31] LABS: CORONAVIRUS COVID-19 NAA NEGATIVE (NEGATIVE)
[2020-12-04] MEDS ORDERED: Doxycycline 100 MG Cap PO ONE (15:19)
--- NOTE | 2020-12-04 15:24 | EDM.PDOC ---
ED HPI GENERAL MEDICAL PROBLEM - General Chief Complaint: Headache Stated Complaint: [facility] Time Seen by Provider: 12/04/20 12:42 Source of Information: Reports: Patient, RN Notes Reviewed - History of Present Illness INITIAL COMMENTS - FREE TEXT/NARRATIVE: 65 yr old female that had onset of Ku, myalgias, chills 2 days ago that continue today. Chronic non prod cough with hx of smoking, COPD. Always somewhat short of breath but not more short of breath than usual. Cough is mostly nonprod. Mild nasal and sinus sarahi. No sore throat or loss of taste or smell. Has been wearing a mask when out in public. Treatments SVP MONETIZATION: Reports: IV/IO Headache Pain Score (Numeric/FACES): 10 - Related Data Allergies Allergy/AdvReac Type Severity Reaction Status Date / Time duloxetine [From Cymbalta] Allergy Severe Confusion Verified 12/04/20 12:43 Influenza Virus Vaccines Allergy Severe Nausea and Verified 12/04/20 12:43 Vomiting azithromycin AdvReac Severe Dizziness Verified 12/04/20 12:43 cephalexin [From Keflex] AdvReac Severe Nausea and Verified 12/04/20 12:43 Vomiting codeine AdvReac Severe Dizziness Verified 12/04/20 12:43 erythromycin base AdvReac Severe passes out Verified 12/04/20 12:43 Home Meds: Home Meds Albuterol [Proair HFA] 1 - 2 puff INH Q4H PRN 12/10/16 [History] Dexlansoprazole [Dexilant] 60 mg PO DAILY 12/10/16 [History] amLODIPine Besylate [Amlodipine Besylate] 10 mg PO DAILY 12/10/16 [History] Tiotropium Br/Olodaterol HCl [Stiolto Respimat Inhal [place]] 2 inh INH DAILY 01/14/17 [History] Albuterol/Ipratropium [Combivent Respimat] 1 puff INH Q4H PRN 10/01/17 [History] Beclomethasone Dipropionate [Qnasl] 2 puff INH BID 10/01/17 [History] Hydroxychloroquine Sulfate [Plaquenil] 400 mg PO DAILY 10/01/17 [History] Doxycycline [Vibra-Tabs] 100 mg PO Q12HR #20 tab 12/04/20 [Rx] Past Medical History HEENT History: Reports: Other (See Below) Other HEENT History: has dentures Cardiovascular History: Reports: None Respiratory History: Reports: Bronchitis, Recurrent, COPD, Interstitial Lung Disease Other Respiratory History: centrilobular emphysema, chronic bronchitis, as piration pneumonia, brochoscopy, interstitial lung disease Gastrointestinal History: Reports: Colon Polyp, Gastritis, GERD, Other (See Below) Other Gastrointestinal History: gastritis, rectal polyp Genitourinary History: Reports: None VAT SKIMMER History: Reports: None Musculoskeletal History: Reports: Back Pain, Chronic Other Musculoskeletal History: L lateral epicondylitis, rayauds Neurological History: Reports: None Psychiatric History: Reports: Anxiety, Depression Endocrine/Metabolic History: Reports: None Hematologic History: Reports: None Immunologic History: Reports: None Oncologic (Cancer) History: Reports: Ovarian Dermatologic History: Reports: Scleroderma - Past Surgical History HEENT Surgical History: Reports: Oral Surgery Respiratory Surgical History: Reports: Other (See Below) Other Respiratory Surgeries/Procedures: bronchoscopy GI Surgical History: Reports: Appendectomy, Cholecystectomy, EGD Female Surgical History: Reports: Hysterectomy, Oophorectomy, Tubal Ligation Musculoskeletal Surgical History: Reports: Carpal Tunnel Social & Family History - Tobacco Use Tobacco Use Status *Q: Current Every Day Tobacco User Years of Tobacco use: 40 Packs/Tins Daily: 0.4 - Caffeine Use Caffeine Use: Reports: Coffee, Soda - Recreational Drug Use Recreational Drug Use: No ED ROS GENERAL - Review of Systems Review Of Systems: See Below Constitutional: Reports: Fever, Chills HEENT: Reports: Rhinitis. Denies: Throat Pain Respiratory: Reports: Shortness of Breath, Cough. Denies: Wheezing Cardiovascular: Denies: Chest Pain GI/Abdominal: Denies: Abdominal Pain, Nausea, Vomiting Musculoskeletal: Reports: Other (generalized achiness) Skin: Denies: Rash Neurological: Reports: Headache. Denies: Numbness, Tingling, Trouble Speaking, Weakness ED EXAM, GENERAL - Physical Exam Exam: See Below General Appearance: Alert, Mild Distress Eye Exam: Bilateral Eye: PERRL Throat/Mouth: Normal Inspection Head: Atraumatic Neck: Supple Respiratory/Chest: No Respiratory Distress, Lungs Clear, Normal Breath Sounds Cardiovascular: Regular Rate, Rhythm GI/Abdominal: Soft, Non-Tender Back Exam: No: CVA Tenderness (L), CVA Tenderness (R) Extremities: No: Increased Warmth Neurological: Alert, Oriented, No Motor/Sensory Deficits Skin Exam: Warm, Dry, Normal Color Course - Vital Signs Last Recorded V/S: Last Vital Signs Temp 99.1 F 12/04/20 13:43 Pulse 99 12/04/20 12:40 Resp 15 12/04/20 12:40 BP 142/96 H 12/04/20 12:40 Pulse Ox 97 12/04/20 12:40 - Orders/Labs/Meds Orders: Active Orders 24 hr Category Date Time Status Peripheral IV Care [RC] . DIRECTED Care 12/04/20 13:00 Active Doxycycline [Vibramycin] Med 12/04/20 15:19 Once 100 mg PO ONETIME ONE Sodium Chloride 0.9% [Normal Saline] 1,000 ml Med 12/04/20 13:30 Active IV ONETIME Sodium Chloride 0.9% [Saline Flush] Med 12/04/20 12:59 Active 10 ml FLUSH ASDIRECTED PRN Isolation [COMM] Routine Oth 12/04/20 13:01 Ordered Peripheral IV Insertion Adult [OM.PC] Stat Oth 12/04/20 12:59 Ordered Medication Orders Doxycycline Hyclate (Doxycycline 100 Mg Cap) 100 mg PO ONETIME ONE Stop: 12/04/20 15:20 Sodium Chloride (Normal Saline) 1,000 mls @ 999 mls/hr IV ONETIME [facility] Last Admin: 12/04/20 13:47 Dose: 999 mls/hr Documented by: THOMAS Sodium Chloride (Sodium Chloride 0.9% 10 Ml Syringe) 10 ml FLUSH ASDIRECTED PRN PRN Reason: Keep Vein Open Last Admin: 12/04/20 13:48 Dose: 10 ml Documented by: THOMAS Labs: Laboratory Tests 12/04/20 12/04/20 12/04/20 Range/Units 13:13 13:13 13:13 WBC 10.41 H (3.98-10.04) K/mm3 RBC 5.10 (3.98-5.22) M/mm3 Hgb 15.4 D (11.2-15.7) gm/dl Hct 46.8 H (34.1-44.9) % MCV 91.8 (79.4-94.8) fl MCH 30.2 (25.6-32.2) pg MCHC 32.9 (32.2-35.5) g/dl RDW Std Deviation 44.9 (36.4-46.3) fL Plt Count 206 (182-369) K/mm3 MPV 9.8 (9.4-12.3) fl Neut % (Auto) 77.8 H (34.0-71.1) % Lymph % (Auto) 10.3 L (19.3-51.7) % Waldo % (Auto) 11.4 (4.7-12.5) % Eos % (Auto) 0.1 L (0.7-5.8) Baso % (Auto) 0.3 (0.1-1.2) % Neut # (Auto) 8.10 H (1.56-6.13) K/mm3 Lymph # (Auto) 1.07 L (1.18-3.74) K/mm3 [place] # (Auto) 1.19 H (0.24-0.36) K/mm3 Eos # (Auto) 0.01 L (0.04-0.36) K/mm3 Baso # (Auto) 0.03 (0.01-0.08) K/mm3 D-Dimer, Quantitative 0.86 H (0.19-0.50) mg/L Sodium (136-145) mEq/L Potassium (3.5-5.1) mEq/L Chloride (98-107) mEq/L Carbon Dioxide (21-32) mEq/L Anion Gap (5-15) BUN (7-18) mg/dL Creatinine (0.55-1.02) mg/dL Est Cr Clr Drug Dosing mL/min Estimated GFR (MDRD) (>60) mL/min BUN/Creatinine Ratio (14-18) Glucose (80-115) mg/dL Calcium (8.5-10.1) mg/dL Ferritin (8-252) ng/ml Total Bilirubin (0.2-1.0) mg/dL AST (15-37) U/L ALT (14-59) U/L Alkaline Phosphatase (46-116) U/L Lactate Dehydrogenase (81-234) U/L C-Reactive Protein 12.5 H* (<1.0) mg/dL Total Protein (6.4-8.2) g/dl Albumin (3.4-5.0) g/dl Globulin gm/dL Albumin/Globulin Ratio (1-2) Influenza Type A RNA (NEGATIVE) Influenza Type B RNA (NEGATIVE) SARS-CoV-2 RNA (MATTHEW) (NEGATIVE) 12/04/20 12/04/20 12/04/20 Range/Units 13:13 13:13 13:40 WBC (3.98-10.04) K/mm3 RBC (3.98-5.22) M/mm3 Hgb (11.2-15.7) gm/dl Hct (34.1-44.9) % MCV (79.4-94.8) fl MCH (25.6-32.2) pg MCHC (32.2-35.5) g/dl RDW Std Deviation (36.4-46.3) fL Plt Count (182-369) K/mm3 MPV (9.4-12.3) fl Neut % (Auto) (34.0-71.1) % Lymph % (Auto) (19.3-51.7) % Waldo % (Auto) (4.7-12.5) % Eos % (Auto) (0.7-5.8) Baso % (Auto) (0.1-1.2) % Neut # (Auto) (1.56-6.13) K/mm3 Lymph # (Auto) (1.18-3.74) K/mm3 Waldo # (Auto) (0.24-0.36) K/mm3 Eos # (Auto) (0.04-0.36) K/mm3 Baso # (Auto) (0.01-0.08) K/mm3 D-Dimer, Quantitative (0.19-0.50) mg/L Sodium 137 (136-145) mEq/L Potassium 3.4 L (3.5-5.1) mEq/L Chloride 100 (98-107) mEq/L Carbon Dioxide 24 (21-32) mEq/L Anion Gap 16.4 H (5-15) BUN 13 (7-18) mg/dL Creatinine 0.8 (0.55-1.02) mg/dL Est Cr Clr Drug Dosing 56.47 mL/min Estimated GFR (MDRD) > 60 (>60) mL/min BUN/Creatinine Ratio 16.3 (14-18) Glucose 119 H (80-115) mg/dL Calcium 9.1 (8.5-10.1) mg/dL Ferritin 343 H (8-252) ng/ml Total Bilirubin 1.1 H (0.2-1.0) mg/dL AST 28 (15-37) U/L ALT 29 (14-59) U/L Alkaline Phosphatase 104 (46-116) U/L Lactate Dehydrogenase 188 (81-234) U/L C-Reactive Protein (<1.0) mg/dL Total Protein 7.1 (6.4-8.2) g/dl Albumin 3.1 L (3.4-5.0) g/dl Globulin 4.0 gm/dL Albumin/Globulin Ratio 0.8 L (1-2) Influenza Type A RNA Negative (NEGATIVE) Influenza Type B RNA Negative (NEGATIVE) SARS-CoV-2 RNA (MATTHEW) Negative (NEGATIVE) Meds: Medications Generic Name Dose Route Start Last Admin Trade Name Freq PRN Reason Stop Dose Admin Doxycycline Hyclate 100 mg 12/04/20 15:19 Doxycycline 100 Mg Cap PO 12/04/20 15:20 ONETIME ONE Sodium Chloride 1,000 mls @ 999 mls/hr 12/04/20 13:30 12/04/20 13:47 Normal Saline IV 999 mls/hr ONETIME NERY Administration Sodium Chloride 10 ml 12/04/20 12:59 12/04/20 13:48 Sodium Chloride 0.9% 10 Ml Syringe FLUSH 10 ml ASDIRECTED PRN Administration Keep Vein Open Discontinued Medications Generic Name Dose Route Start Last Admin Trade Name Freq PRN Reason Stop Dose Admin Acetaminophen 975 mg 12/04/20 13:17 12/04/20 13:43 Acetaminophen 325 Mg Tab PO 12/04/20 13:18 975 mg NOW ONE Administration Hydromorphone HCl 0.5 mg 12/04/20 13:17 12/04/20 13:47 Hydromorphone 0.5 Mg/0.5 Ml Syringe IVPUSH 12/04/20 13:18 0.5 mg ONETIME ONE Administration Ondansetron HCl 4 mg 12/04/20 13:17 12/04/20 13:45 Ondansetron 4 Mg/2 Ml Sdv IVPUSH 12/04/20 13:18 4 mg ONETIME ONE Administration - Re-Assessments/Exams Free Text/Narrative Re-Assessment/Exam: 12/04/20 15:27. covid screen neg. CXR shows COPD, no infiltrates. WBC 10,400. D dimer 0.86. CRP 12.5. Ferritin 343, LDH 188. She could have early covid with a false neg with onset of sx just 2 wks ago, or it could be something else. No known exposure and the known covid in our area is pretty low right now. With her COPD she is high risk for pneumonia so am going to start her on doxycyline 100 mg bid for 10 days. She feels better after tylenol and dilaudid 0.5 mg IV and some IV fluid. Discharge instr. as documented. Departure - Departure Time of Disposition: 15:21 Disposition: Home, Self-Care 01 Condition: Fair Clinical Impression: Bronchitis Headache Qualifiers: Headache type: unspecified Headache chronicity pattern: acute headache In tractability: not intractable Qualified Code(s): R51.9 - Headache, unspecified - Discharge Information Referrals: Daja Prakash NP [Primary Care Provider] - Additional Instructions: Rest. Self isolate for now. Doxycycline 100 mg twice daily for 10 days or until gone. [facility]. Rest, drink plenty of fluids. Tylenol 100 mg 3 times daily. You may take advil or ibuprfen 400 mg in between doses of tylenol for extra pain relief. I do lauren mend you have a follow up covid test in about 4 to 6 days. Return to ED as needed if symptoms worsening in any way. Sepsis Event Note (ED) - Evaluation Sepsis Screening Result: No Definite Risk - Focused Exam Vital Signs: Vital Signs Temp Temp Pulse Resp BP Pulse Ox 12/04/20 13:43 99.1 F 12/04/20 12:40 99.1 F 99 15 142/96 H 97 - My Orders Last 24 Hours: My Active Orders 12/04/20 12:59 Sodium Chloride 0.9% [Saline Flush] 10 ml FLUSH ASDIRECTED PRN Peripheral IV Insertion Adult [OM.PC] Stat 12/04/20 13:00 Peripheral IV Care [RC] . DIRECTED 12/04/20 13:01 Isolation [COMM] Routine 12/04/20 13:30 Sodium Chloride 0.9% [Normal Saline] 1,000 ml IV ONETIME 12/04/20 15:19 Doxycycline [Vibramycin] 100 mg PO ONETIME ONE - Assessment/Plan Last 24 Hours: My Active Orders 12/04/20 12:59 Sodium Chloride 0.9% [Saline Flush] 10 ml FLUSH ASDIRECTED PRN Peripheral IV Insertion Adult [OM.PC] Stat 12/04/20 13:00 Peripheral IV Care [RC] . DIRECTED 12/04/20 13:01 Isolation [COMM] Routine 12/04/20 13:30 Sodium Chloride 0.9% [Normal Saline] 1,000 ml IV ONETIME 12/04/20 15:19 Doxycycline [Vibramycin] 100 mg PO ONETIME ONE
[2020-12-04] MEDS ORDERED: Ketorolac 30 MG/ML SDV IVPUSH SCH (15:30)
[2020-12-04 15:52] VITALS: BP 142/86; PULSE 72
== END 2020-12-04 15:38 | disposition home or self-care (01) ==
LOC: JD.ED 12:34
DX: J40 Bronchitis, not specified as acute or chronic (principal); K21.9 Gastro-esophageal reflux disease without esophagitis; Z72.0 Tobacco use; Z88.8 Allergy status to other drugs, medicaments and biological substances; Z88.7 Allergy status to serum and vaccine; Z88.1 Allergy status to other antibiotic agents; Z88.5 Allergy status to narcotic agent; Z79.899 Other long term (current) drug therapy; Z20.822 Contact with and (suspected) exposure to COVID-19
CPT/HCPCS: 0240U; 36415; 71045; 80053; 82728; 83615; 85025; 85379; 86140; 96374; 96375; 99284; A9270; J1170; J1885; J2405; J7030

== ENCOUNTER 2021-05-27 11:10 | Emergency (ER) | payer MEDICARE, MEDICAID ==
[2021-05-27 11:38] VITALS: BP 149/90; PULSE 79
[2021-05-27] MEDS ORDERED: Sodium Chloride 0.9% 10 ML Syringe FLUSH PRN (11:48)
[2021-05-27] MEDS ORDERED: diphenhydrAMINE 50 MG/ML SDV IVPUSH ONE (11:51)
[2021-05-27] MEDS ORDERED: Metoclopramide 10 MG/2 ML SDV IVPUSH ONE (11:51)
[2021-05-27] MEDS ORDERED: Ketorolac 30 MG/ML SDV IVPUSH SCH (12:00)
[2021-05-27] MEDS ORDERED: Sodium Chloride 0.9% 1,000 ML IV SCH (12:00)
--- NOTE | 2021-05-27 12:15 | EDM.PDOC ---
ED HPI GENERAL MEDICAL PROBLEM - General Chief Complaint: Headache Stated Complaint: DIZZY\HEADACHE Time Seen by Provider: 05/27/21 11:35 Source of Information: Reports: Patient, RN Notes Reviewed - History of Present Illness INITIAL COMMENTS - FREE TEXT/NARRATIVE: 66 yr old female comes in with Ku, facial and forehead pressure. This started last evening, continues today. Has had chills. Denies cough or feeling short of breath. No abd pain, nausea or vomiting. When asked about covid she has not been vacinated. 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 Headache Pain Score (Numeric/FACES): 10 Lower Back Pain Score (Numeric/FACES): 10 - Related Data Allergies Allergy/AdvReac Type Severity Reaction Status Date / Time duloxetine [From Cymbalta] Allergy Severe Confusion Verified 12/04/20 12:43 Influenza Virus Vaccines Allergy Severe Nausea and Verified 12/04/20 12:43 Vomiting azithromycin AdvReac Severe Dizziness Verified 12/04/20 12:43 cephalexin [From Keflex] AdvReac Severe Nausea and Verified 12/04/20 12:43 Vomiting codeine AdvReac Severe Dizziness Verified 12/04/20 12:43 erythromycin base AdvReac Severe passes out Verified 12/04/20 12:43 Home Meds: Home Meds Albuterol [Proair HFA] 1 - 2 puff INH Q4H PRN 12/10/16 [History] Dexlansoprazole [Dexilant] 60 mg PO DAILY 12/10/16 [History] amLODIPine Besylate [Amlodipine Besylate] 10 mg PO DAILY 12/10/16 [History] Tiotropium Br/Olodaterol HCl [Stiolto Respimat Inhal [place]] 2 inh INH DAILY 01/14/17 [History] Albuterol/Ipratropium [Combivent Respimat] 1 puff INH Q4H PRN 10/01/17 [History] Beclomethasone Dipropionate [Qnasl] 2 puff INH BID 10/01/17 [History] Hydroxychloroquine Sulfate [Plaquenil] 400 mg PO DAILY 10/01/17 [History] Doxycycline [Vibra-Tabs] 100 mg PO Q12HR #20 tab 12/04/20 [Rx] Doxycycline [Vibra-Tabs] 100 mg PO Q12HR #14 tab 05/27/21 [Rx] Past Medical History HEENT History: Reports: Other (See Below) Other HEENT History: has dentures Cardiovascular History: Reports: None Respiratory History: Reports: Bronchitis, Recurrent, COPD, Interstitial Lung Disease Other Respiratory History: centrilobular emphysema, chronic bronchitis, aspiration pneumonia, brochoscopy, interstitial lung disease Gastrointestinal History: Reports: Colon Polyp, Gastritis, GERD, Other (See Below) Other Gastrointestinal History: gastritis, rectal polyp Genitourinary History: Reports: None 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 Musculoskeletal History: Reports: Back Pain, Chronic Other Musculoskeletal History: L lateral epicondylitis, rayauds Neurological History: Reports: None Psychiatric History: Reports: Anxiety, Depression Endocrine/Metabolic History: Reports: None Hematologic History: Reports: None Immunologic History: Reports: None Oncologic (Cancer) History: Reports: Ovarian Dermatologic History: Reports: Scleroderma - Infectious Disease History Infectious Disease History: Reports: None - Past Surgical History Head Surgeries/Procedures: Reports: None HEENT Surgical History: Reports: Oral Surgery Cardiovascular Surgical History: Reports: None Respiratory Surgical History: Reports: Other (See Below) Other Respiratory Surgeries/Procedures: bronchoscopy GI Surgical History: Reports: Appendectomy, Cholecystectomy, EGD Female Surgical History: Reports: Hysterectomy, Oophorectomy, Tubal Ligation Endocrine Surgical History: Reports: None Neurological Surgical History: Reports: Other (See Below) Other Neurological Surgeries/Procedures: spine surgery Musculoskeletal Surgical History: Reports: Carpal Tunnel Other Musculoskeletal Surgeries/Procedures:: back surgery, fracture surgery, hand surgery, spine surgery Oncologic Surgical History: Reports: None Dermatological Surgical History: Reports: None Social & Family History - Tobacco Use Tobacco Use Status *Q: Current Every Day Tobacco User Years of Tobacco use: 20 Packs/Tins Daily: 0.5 - Caffeine Use Caffeine Use: Reports: Coffee, Soda, Tea - Recreational Drug Use Recreational Drug Use: No ED ROS GENERAL - Review of Systems Review Of Systems: See Below Constitutional: Reports: Chills HEENT: Reports: Ear Pain, Sinus Problem (feels sinus and forehead pressure ). Denies: Ear Discharge, Throat Pain Respiratory: Denies: Shortness of Breath, Wheezing, Cough Cardiovascular: Denies: Chest Pain GI/Abdominal: Denies: Abdominal Pain, Nausea, Vomiting Musculoskeletal: Reports: No Symptoms Skin: Reports: No Symptoms Neurological: Reports: Headache ED EXAM, GENERAL - Physical Exam Exam: See Below General Appearance: Alert, Mild Distress Ear Exam: Bilateral Ear: TM normal Nose: Normal Inspection Head: Atraumatic Neck: Supple Respiratory/Chest: No Respiratory Distress, Lungs Clear, Normal Breath Sounds. No: Rhonchi, Wheezing Cardiovascular: Regular Rate, Rhythm Extremities: Normal Inspection. No: Pedal Edema, Leg Pain Neurological: Alert, Oriented, No Motor/Sensory Deficits Skin Exam: Warm, Dry, Normal Color Course - Vital Signs Last Recorded V/S: Last Vital Signs Temp 97.3 F 05/27/21 11:36 Pulse 79 05/27/21 11:36 Resp 20 05/27/21 11:36 BP 149/90 H 05/27/21 11:36 Pulse Ox 98 05/27/21 11:36 - Orders/Labs/Meds Orders: Active Orders 24 hr Category Date Time Status Peripheral IV Insertion Adult [OM.PC] Stat Oth 05/27/21 11:49 Ordered Labs: Laboratory Tests 05/27/21 Range/Units 11:52 SARS-CoV-2 RNA (MATTHEW) Positive H (NEGATIVE) Meds: Medications Discontinued Medications Generic Name Dose Route Start Last Admin Trade Name Freq PRN Reason Stop Dose Admin Diphenhydramine HCl 25 mg 05/27/21 11:51 05/27/21 12:36 Diphenhydramine 50 Mg/Ml Sdv IVPUSH 05/27/21 11:52 25 mg ONETIME ONE Administration Sodium Chloride 1,000 mls @ 999 mls/hr 05/27/21 12:00 05/27/21 12:36 Normal Saline IV 999 mls/hr ONETIME NERY Administration Ketorolac Tromethamine 30 mg 05/27/21 12:00 05/27/21 12:37 Ketorolac 30 Mg/Ml Sdv IVPUSH 30 mg ONETIME NERY Administration Metoclopramide HCl 5 mg 05/27/21 11:51 05/27/21 12:36 Metoclopramide 10 Mg/2 Ml Sdv IVPUSH 05/27/21 11:52 5 mg ONETIME ONE Administration Sodium Chloride 10 ml 05/27/21 11:48 05/27/21 12:38 Sodium Chloride 0.9% 10 Ml Syringe FLUSH 10 ml ASDIRECTED PRN Administration Keep Vein Open - Re-Assessments/Exams Free Text/Narrative Re-Assessment/Exam: 05/27/21 19:15 Good relief of Ku after benadry, reglan, torodol and IV fluid. Covid positive. Departure - Departure Time of Disposition: 13:35 Disposition: Home, Self-Care 01 Condition: Fair Clinical Impression: Headache Qualifiers: Headache type: unspecified Headache chronicity pattern: acute headache Intractability: not intractable Qualified Code(s): R51.9 - Headache, unspecified Sinusitis Qualifiers: Sinusitis location: unspecified location Chronicity: unspecified Qualified Code(s): J32.9 - Chronic sinusitis, unspecified - Discharge Information Prescriptions: Doxycycline [Vibra-Tabs] 100 mg PO Q12HR #14 tab Instructions: COVID-19, General Headache Without Cause, [id number] Referrals: Daja Prakash NP [Primary Care Provider] - Forms: ED Department Discharge Additional Instructions: You have tested positive for covid today. Go home and self isolate for 10 days or until asymptomatic. You can alternate tylenol and ibuprofen as needed for discomfort. Doxycycline 100 mg twice daily for 1 week. Prescription has been [facility] to [facility]. Return to ED if you develop severe difficulty breathing. Sepsis Event Note (ED) - Focused Exam Vital Signs: Vital Signs Temp Pulse Resp BP Pulse Ox 05/27/21 11:36 97.3 F 79 20 149/90 H 98 - My Orders Last 24 Hours: My Active Orders 05/27/21 11:49 Peripheral IV Insertion Adult [OM.PC] Stat - Assessment/Plan Last 24 Hours: My Active Orders 05/27/21 11:49 Peripheral IV Insertion Adult [OM.PC] Stat
== END 2021-05-27 14:27 | disposition home or self-care (01) ==
LOC: JD.ED 11:10
DX: U07.1 COVID-19 (principal); J32.9 Chronic sinusitis, unspecified; J44.9 Chronic obstructive pulmonary disease, unspecified; K21.9 Gastro-esophageal reflux disease without esophagitis; Z72.0 Tobacco use; Z88.5 Allergy status to narcotic agent; Z88.1 Allergy status to other antibiotic agents; Z88.8 Allergy status to other drugs, medicaments and biological substances; Z88.7 Allergy status to serum and vaccine; Z79.899 Other long term (current) drug therapy
CPT/HCPCS: 96374; 96375; 99284; J1200; J1885; J2765; J7030; U0002

== ENCOUNTER 2022-10-01 08:56 | Emergency (ER) | payer MEDICARE, MEDICAID ==
[2022-10-01 09:03] VITALS: BP 160/92; PULSE 95
[2022-10-01] MEDS ORDERED: Lactated Ringers 1,000 ML IV ONE (09:49)
[2022-10-01] MEDS ORDERED: Metoclopramide 10 MG/2 ML SDV IVPUSH ONE (09:51)
[2022-10-01] MEDS ORDERED: Acetaminophen 325 MG Tab PO ONE (09:51)
[2022-10-01] MEDS ORDERED: diphenhydrAMINE 50 MG/ML SDV IVPUSH ONE (09:51)
[2022-10-01] MEDS ORDERED: Iopamidol 755 Mg/ML 100 ML Bottle IVPUSH ONE (10:26)
[2022-10-01] MEDS ORDERED: Sodium Chloride 0.9% 100 ML IV SCH (10:30)
[2022-10-01] MEDS: Sodium Chloride 0.9% 10 ML Syringe FLUSH PRN ×2 (10:44→10:47)
== END 2022-10-01 13:10 | disposition home or self-care (01) ==
LOC: JD.ED 08:56
DX: R51.9 Headache, unspecified (principal); J44.9 Chronic obstructive pulmonary disease, unspecified; Z88.1 Allergy status to other antibiotic agents; Z88.5 Allergy status to narcotic agent; Z88.7 Allergy status to serum and vaccine; Z88.8 Allergy status to other drugs, medicaments and biological substances; Z90.49 Acquired absence of other specified parts of digestive tract; Z90.710 Acquired absence of both cervix and uterus; Z72.0 Tobacco use
CPT/HCPCS: 36415; 70450; 70496; 70498; 80053; 81001; 85025; 87086; 96361; 96374; 96375; 99284; A9270; J1200; J2765; J3490; J7120; Q9967; 87088; 87186

== ENCOUNTER 2022-11-09 03:16 | Emergency (ER) | payer MEDICARE ==
[2022-11-09 04:03] VITALS: BP 159/87; PULSE 95
== END 2022-11-09 04:03 | disposition home or self-care (01) ==
LOC: JD.ED 03:16
DX: S81.811D Laceration without foreign body, right lower leg, subsequent encounter (principal); Z48.02 Encounter for removal of sutures; J43.9 Emphysema, unspecified; Z88.1 Allergy status to other antibiotic agents; Z88.5 Allergy status to narcotic agent; Z72.0 Tobacco use
CPT/HCPCS: 99281

== ENCOUNTER 2024-03-17 06:00 | Day surgery (SDC) | payer MEDICARE, MEDICAID ==
[2024-03-17] MEDS: Lactated Ringers 1,000 ML IV SCH (06:30)
[2024-03-17] MEDS ORDERED: Lidocaine 1% 5 ML VIAL ONE (06:43)
[2024-03-17] MEDS ORDERED: Propofol 200 MG/20 ML SDV ONE (06:44)
[2024-03-17] MEDS ORDERED: Midazolam 1 MG/ML 2 ML SDV ONE (06:44)
[2024-03-17] MEDS ORDERED: fentaNYL 100 MCG/2 ML SDV ONE (06:44)
[2024-03-17] MEDS ORDERED: Ondansetron 4 MG/2 ML SDV ONE (06:51)
[2024-03-17] MEDS: Clindamycin Phosphate in D5W 900 MG in Premix Bag 1 BAG IV ONE (06:58)
[2024-03-17] MEDS: Bupivacaine 0.25% 10 ML SDV ONE (07:19)
[2024-03-17] MEDS: Lidocaine 1% 10 ML MDV ONE (07:19)
[2024-03-17] MEDS: Triamcinolone Acetonide 40 MG/ML 1 ML SDV ONE (07:19)
[2024-03-17 09:05] VITALS: BP 97/61; PULSE 54
== END 2024-03-17 08:42 | disposition home or self-care (01) ==
LOC: JD.SDS 06:00
PROVIDERS: ATTEND Orthopaedic Surgery
DX: G56.13 Other lesions of median nerve, bilateral upper limbs (principal); M81.0 Age-related osteoporosis without current pathological fracture; J43.2 Centrilobular emphysema; K21.9 Gastro-esophageal reflux disease without esophagitis; F41.9 Anxiety disorder, unspecified; F32.A Depression, unspecified; F17.210 Nicotine dependence, cigarettes, uncomplicated; Z79.899 Other long term (current) drug therapy; Z88.5 Allergy status to narcotic agent; Z88.1 Allergy status to other antibiotic agents; Z88.2 Allergy status to sulfonamides; Z88.8 Allergy status to other drugs, medicaments and biological substances
CPT/HCPCS: 20526; 64721; J0665; J0736; J2250; J2405; J2704; J3010; J3301; J7120; 01810; J3490

== ENCOUNTER 2024-05-04 06:00 | Day surgery (SDC) | payer MEDICARE, MEDICAID ==
[~2024-05-04 06:00] MED LIST changes: -Lactated Ringers 1,000 ML IV SCH; -Lidocaine 1%/Sod Bicarbonate in NS 8.4% 1 ML Syringe IV PRN; +Sodium Chloride 0.9% 10 ML Syringe FLUSH SCH
[2024-05-04] MEDS: Lactated Ringers 1,000 ML IV SCH (06:10)
[2024-05-04] MEDS ORDERED: fentaNYL 100 MCG/2 ML SDV ONE (06:12)
[2024-05-04] MEDS ORDERED: Propofol 200 MG/20 ML SDV ONE (06:12)
[2024-05-04] MEDS: Bupivacaine 0.25% 10 ML SDV ONE (06:58)
[2024-05-04] MEDS: Lidocaine 1% 10 ML MDV ONE (06:58)
[2024-05-04 07:24] VITALS: BP 140/79; PULSE 61
== END 2024-05-04 08:00 | disposition home or self-care (01) ==
LOC: JD.SDS 06:00
PROVIDERS: ATTEND Orthopaedic Surgery
DX: G56.12 Other lesions of median nerve, left upper limb (principal); I10 Essential (primary) hypertension; J44.9 Chronic obstructive pulmonary disease, unspecified; F41.9 Anxiety disorder, unspecified; K21.9 Gastro-esophageal reflux disease without esophagitis; J43.2 Centrilobular emphysema; F17.210 Nicotine dependence, cigarettes, uncomplicated
CPT/HCPCS: 64721; J0665; J2704; J3010; J7120; 01810; J3490

== ENCOUNTER 2024-08-18 15:18 | Emergency (ER) | payer MEDICARE, MEDICAID ==
[2024-08-18 15:43] LABS: BASOPHILS ABSOLUTE AUTO 0.1 K/mm3 (0.0-0.2); BASOPHILS PERCENT AUTO 0.5 % (0.0-1.0); EOSINOPHILS ABSOLUTE AUTO 0.1 K/mm3 (0.0-0.4); EOSINOPHILS PERCENT AUTO 0.4 % (0.0-6.0); HEMATOCRIT 42.9 % (37.0-47.0); HEMOGLOBIN 14.5 gm/dl (12.0-16.0); IMMATURE GRAN ABSOLUTE AUTO 0.09 K/mm3 (0.00-0.05); IMMATURE GRAN PERCENT AUTO 0.6 % (0.0-0.4); LYMPHOCYTES ABSOLUTE AUTO 1.3 K/mm3 (1.0-4.8); LYMPHOCYTES PERCENT AUTO 9.4 % (24.0-44.0); MEAN CORPUSCULAR HEMOGLOBIN 30.7 pg (28.0-32.0); MEAN CORPUSCULAR HGB CONC 33.8 g/dl (32.0-36.0); MEAN CORPUSCULAR VOLUME 90.7 fl (83.0-99.0); MEAN PLATELET VOLUME 9.1 fl (9.4-12.3); MONOCYTES ABSOLUTE AUTO 1.2 K/mm3 (0.0-0.8); MONOCYTES PERCENT AUTO 8.7 % (0.0-8.0); NEUTROPHILS ABSOLUTE AUTO 11.3 K/mm3 (1.8-7.7); NEUTROPHILS PERCENT AUTO 80.4 % (41.0-71.0); PLATELET COUNT,PLT 295 K/mm3 (150-400); RED BLOOD CELL COUNT 4.73 M/mm3 (4.10-5.30); WHITE BLOOD CELL COUNT,WBC 14.05 K/mm3 (3.9-11.3)
[2024-08-18] MEDS: diphenhydrAMINE 50 MG/ML SDV IVPUSH ONE (15:43)
[2024-08-18] MEDS: Sodium Chloride 0.9% 10 ML Syringe FLUSH PRN (15:43)
[2024-08-18] MEDS: HYDROmorphone 1 MG/ML Syringe IVPUSH ONE (15:43)
[2024-08-18] MEDS: Metoclopramide 10 MG/2 ML SDV IVPUSH ONE (15:43)
[2024-08-18 16:01] LABS: A/G RATIO 0.8 (1-2); ALANINE AMINOTRANSFERASE,ALT 17 U/L (14-59); ALBUMIN 3.2 g/dl (3.4-5.0); ALKALINE PHOSPHATASE 121 U/L (46-116); ANION GAP 14.2 (5-15); ASPARTATE AMNIOTRANSFERASE,AST 13 U/L (15-37); BILIRUBIN TOTAL 1.3 mg/dL (0.2-1.0); BLOOD UREA NITROGEN,BUN 10 mg/dL (7-18); BUN/CREATININE RATIO 12.5 (14-18); C-REACTIVE PROTEIN 4.09 mg/dL (<0.30); CARBON DIOXIDE,CO2 23 mEq/L (21-32); CHLORIDE,CL 102 mEq/L (98-107); CREATININE 0.8 mg/dL (0.55-1.02); ESTIMATED GFR 80 mL/min (>60); GLUCOSE RANDOM 108 mg/dL (70-99); POTASSIUM,K 3.2 mEq/L (3.5-5.1); PROTEIN TOTAL,TP 7.1 g/dl (6.4-8.2); SODIUM,NA 136 mEq/L (136-145)
[2024-08-18 17:37] VITALS: BP 157/96; PULSE 81
== END 2024-08-18 17:15 | disposition home or self-care (01) ==
LOC: JD.ED 15:18
DX: R51.9 Headache, unspecified (principal); I10 Essential (primary) hypertension; J44.9 Chronic obstructive pulmonary disease, unspecified; Z90.49 Acquired absence of other specified parts of digestive tract; Z90.710 Acquired absence of both cervix and uterus; Z88.5 Allergy status to narcotic agent; Z88.1 Allergy status to other antibiotic agents; Z88.7 Allergy status to serum and vaccine; Z88.8 Allergy status to other drugs, medicaments and biological substances; Z79.51 Long term (current) use of inhaled steroids; Z79.899 Other long term (current) drug therapy
CPT/HCPCS: 36415; 70450; 80053; 85025; 86140; 96374; 96375; 99284; J1171; J1200; J2765

== ENCOUNTER 2024-10-31 07:00 | Day surgery (SDC) | payer MEDICARE, MEDICAID ==
[~2024-10-31 07:00] MED LIST changes: +Dexamethasone 4 MG/ML 5 ML MDV ONE; +Ketorolac 30 MG/ML SDV ONE; +Lidocaine 2% 5 ML SDV ONE; +Midazolam 1 MG/ML 2 ML SDV ONE; +Ondansetron 4 MG/2 ML SDV ONE; +Propofol 200 MG/20 ML SDV ONE; +Rocuronium 50 MG/5 ML Vial ONE; +Ropivacaine 0.5% 5 MG/ML 30 ML SDV ONE; +ceFAZolin 2 GM Vial ONE; +fentaNYL 100 MCG/2 ML SDV ONE
[2024-10-31] MEDS ORDERED: Sugammadex Sodium 200 MG/2 ML VIAL IV ONE (07:04)
[2024-10-31] MEDS ORDERED: fentaNYL 100 MCG/2 ML SDV IVPUSH PRN (07:15)
[2024-10-31] MEDS ORDERED: Ondansetron 4 MG/2 ML SDV IVPUSH PRN (07:15)
[2024-10-31] MEDS: Lactated Ringers 1,000 ML IV SCH (07:15)
[2024-10-31] MEDS ORDERED: HYDROmorphone 0.5 MG/0.5 ML Syringe IVPUSH PRN (07:15)
[2024-10-31 07:45] LABS: A/G RATIO 0.9 (1-2); ALANINE AMINOTRANSFERASE,ALT 16 U/L (14-59); ALBUMIN 3.2 g/dl (3.4-5.0); ALKALINE PHOSPHATASE 96 U/L (46-116); ANION GAP 13.3 (5-15); ASPARTATE AMNIOTRANSFERASE,AST 13 U/L (15-37); BILIRUBIN TOTAL 0.5 mg/dL (0.2-1.0); BLOOD UREA NITROGEN,BUN 21 mg/dL (7-18); BUN/CREATININE RATIO 13.1 (14-18); CALCIUM 8.9 mg/dL (8.5-10.1); CARBON DIOXIDE,CO2 28 mEq/L (21-32); CHLORIDE,CL 103 mEq/L (98-107); CREATININE 1.6 mg/dL (0.55-1.02); ESTIMATED GFR 35 mL/min (>60); GLUCOSE RANDOM 115 mg/dL (70-99); POTASSIUM,K 3.3 mEq/L (3.5-5.1); PROTEIN TOTAL,TP 6.8 g/dl (6.4-8.2); SODIUM,NA 141 mEq/L (136-145)
[2024-10-31] MEDS ORDERED: ePHEDrine 50 MG/ML SDV ONE ×2 (07:59)
[2024-10-31] MEDS: Albuterol/Ipratropium 3.0-0.5 MG/3 ML Neb Soln NEB ONE (08:11)
[2024-10-31] MEDS ORDERED: Lactated Ringers 1,000 ML IV ONE (09:00)
[2024-10-31] MEDS: VANCOmycin 1 GM SDV ONE (09:05)
[2024-10-31] MEDS: Tranexamic Acid 1,000 MG/10 ML Vial ONE (09:05)
[2024-10-31] MEDS: traMADol 50 MG Tab PO PRN (12:22)
[2024-10-31 15:37] VITALS: BP 105/64; PULSE 71
== END 2024-10-31 15:25 | disposition home or self-care (01) ==
LOC: JD.SDS 07:00
PROVIDERS: ATTEND Orthopaedic Surgery
DX: M19.012 Primary osteoarthritis, left shoulder (principal); M81.0 Age-related osteoporosis without current pathological fracture; J43.2 Centrilobular emphysema; I10 Essential (primary) hypertension; K21.9 Gastro-esophageal reflux disease without esophagitis; F17.210 Nicotine dependence, cigarettes, uncomplicated; Z79.899 Other long term (current) drug therapy; Z88.1 Allergy status to other antibiotic agents; Z88.8 Allergy status to other drugs, medicaments and biological substances; Z88.2 Allergy status to sulfonamides
CPT/HCPCS: 23472; 36415; 76000; 80053; 97116; 97161; A9270; C1713; C1769; C1776; J0690; J1100; J1596; J1885; J2003; J2250; J2405; J2704; J2795; J3010; J7120; 01968; 64415; J3490

== ENCOUNTER 2025-03-22 07:42 | Day surgery (SDC) | payer MEDICARE, MEDICAID ==
[~2025-03-22 07:42] MED LIST changes: -Dexamethasone 4 MG/ML 5 ML MDV ONE; -Ketorolac 30 MG/ML SDV ONE; -Lidocaine 2% 5 ML SDV ONE; -Midazolam 1 MG/ML 2 ML SDV ONE; -Propofol 200 MG/20 ML SDV ONE; -Rocuronium 50 MG/5 ML Vial ONE; -ceFAZolin 2 GM Vial ONE; +dexmedeTOMIDine HCl 200 MCG/2 ML SDV ONE; +propofoL 500 MG/50 ML 50 ML ONE
[2025-03-22] MEDS: Lactated Ringers 1,000 ML IV SCH (08:05)
[2025-03-22] MEDS ORDERED: ePHEDrine 50 MG/ML SDV ONE (09:47)
[2025-03-22] MEDS ORDERED: Dexamethasone 4 MG/ML 5 ML MDV ONE (09:48)
[2025-03-22] MEDS ORDERED: Phenylephrine 1% 10 MG/ML SDV ONE (09:53)
[2025-03-22] MEDS ORDERED: Lactated Ringers 1,000 ML ONE (10:00)
[2025-03-22] MEDS ORDERED: Propofol 200 MG/20 ML SDV ONE (10:11)
[2025-03-22] MEDS ORDERED: Glycopyrrolate 0.2 MG/ML 2 ML SDV ONE (10:18)
[2025-03-22] MEDS: droPERidol 2.5 MG/ML SDV IV PRN (11:17)
[2025-03-22] MEDS: fentaNYL 100 MCG/2 ML SDV IVPUSH PRN (11:19)
[2025-03-22 13:43] VITALS: PULSE 72
[2025-03-22 14:55] VITALS: BP 144/82
== END 2025-03-22 11:45 | disposition home or self-care (01) ==
LOC: JD.SDS 07:42
PROVIDERS: ATTEND Orthopaedic Surgery
DX: M12.811 Other specific arthropathies, not elsewhere classified, right shoulder (principal); M75.101 Unspecified rotator cuff tear or rupture of right shoulder, not specified as traumatic; Z88.1 Allergy status to other antibiotic agents; Z88.5 Allergy status to narcotic agent; Z79.899 Other long term (current) drug therapy
CPT/HCPCS: 23472; 64415; 76000; 97161; 97530; A9270; C1713; C1769; C1776; J0690; J1100; J1596; J1790; J2371; J2405; J2704; J2795; J3010; J3373; J7120; 01638; J0665; J3490

== ENCOUNTER 2025-07-20 22:11 | Emergency (ER) | payer MEDICARE, MEDICAID ==
[2025-07-20 22:59] LABS: BASOPHILS ABSOLUTE AUTO 0.1 K/mm3 (0.0-0.2); BASOPHILS PERCENT AUTO 0.9 % (0.0-1.0); EOSINOPHILS ABSOLUTE AUTO 0.1 K/mm3 (0.0-0.4); EOSINOPHILS PERCENT AUTO 1.3 % (0.0-6.0); IMMATURE GRAN ABSOLUTE AUTO 0.02 K/mm3 (0.00-0.05); IMMATURE GRAN PERCENT AUTO 0.3 % (0.0-0.4); LYMPHOCYTES ABSOLUTE AUTO 1.9 K/mm3 (1.0-4.8); LYMPHOCYTES PERCENT AUTO 23.8 % (24.0-44.0); MEAN PLATELET VOLUME 9.4 fl (9.4-12.3); MONOCYTES ABSOLUTE AUTO 0.8 K/mm3 (0.0-0.8); MONOCYTES PERCENT AUTO 9.9 % (0.0-8.0); NEUTROPHILS ABSOLUTE AUTO 5.1 K/mm3 (1.8-7.7); NEUTROPHILS PERCENT AUTO 63.8 % (41.0-71.0); NRBC ABSOLUTE 0.00 (0.00-0.02); NRBC PERCENT 0.0 % (0.0-0.2); PLATELET COUNT,PLT 325 K/mm3 (150-400); RED BLOOD CELL COUNT 4.58 M/mm3 (4.10-5.30); WHITE BLOOD CELL COUNT,WBC 7.99 K/mm3 (3.9-11.3)
[2025-07-20] MEDS: Ketorolac 30 MG/ML SDV IVPUSH ONE (23:05)
[2025-07-20] MEDS: Levofloxacin/Dextrose 5%-Water 750 MG in Premix Bag 1 BAG IV ONE (23:06)
[2025-07-20 23:11] LABS: A/G RATIO 0.9 (1-2); ALANINE AMINOTRANSFERASE,ALT 20.0 U/L (14-59); ASPARTATE AMNIOTRANSFERASE,AST 16.0 U/L (15-37); BILIRUBIN TOTAL 0.4 mg/dL (0.2-1.0); BLOOD UREA NITROGEN,BUN 22.0 mg/dL (7-18); CARBON DIOXIDE,CO2 29.0 mEq/L (21-32); CHLORIDE,CL 104.0 mEq/L (98-107); CREATININE 1.6 mg/dL (0.55-1.02); EST CRCL DRUG DOSING (CG) 29.07 mL/min; ESTIMATED GFR 35.0 mL/min (>60); GLUCOSE RANDOM 122.0 mg/dL (70-99); POTASSIUM,K 3.8 mEq/L (3.5-5.1); PROTEIN TOTAL,TP 6.8 g/dl (6.4-8.2); SODIUM,NA 142.0 mEq/L (136-145)
[2025-07-20 23:16] LABS: LACTIC ACID 0.8 mmol/L (0.4-2.0)
[2025-07-21 00:53] VITALS: BP 135/83; PULSE 74
== END 2025-07-21 00:48 | disposition home or self-care (01) ==
LOC: JD.ED 22:11
DX: T81.49XA Infection following a procedure, other surgical site, initial encounter (principal); L03.115 Cellulitis of right lower limb; J44.9 Chronic obstructive pulmonary disease, unspecified; I73.9 Peripheral vascular disease, unspecified; I83.12 Varicose veins of left lower extremity with inflammation; I83.11 Varicose veins of right lower extremity with inflammation; I10 Essential (primary) hypertension; Z88.2 Allergy status to sulfonamides; Z88.7 Allergy status to serum and vaccine; Z88.8 Allergy status to other drugs, medicaments and biological substances; Z88.1 Allergy status to other antibiotic agents; Z79.899 Other long term (current) drug therapy; Z90.49 Acquired absence of other specified parts of digestive tract; Z90.710 Acquired absence of both cervix and uterus
CPT/HCPCS: 36415; 80053; 83605; 85025; 86140; 87070; 87075; 87077; 87186; 87205; 96365; 96366; 96375; 99283; J1956; 99284; J1885